=== PATIENT | male | born 1970 | race Two or more races ===

== ENCOUNTER 2017-10-12 12:25 | Inpatient (IN) | payer SELFPAY ==
[~2017-10-12] VITALS: Ht 172.7 cm; Wt 77.1 kg
[2017-10-12 14:29] LABS: HEMATOCRIT 39.1 % (42.0-52.0); HEMOGLOBIN 12.9 G/DL (14.2-18.0); MEAN CORPUSCULAR VOLUME 103 FL (80-99); PLATELET COUNT 180 K/UL (150-450); RED BLOOD COUNT 3.79 M/UL (4.70-6.10); RED CELL DISTRIBUTION WIDTH 14.2 % (11.6-14.8)
[2017-10-12 14:37] LABS: ANION GAP 11 mmol/L (5-15); BLOOD UREA NITROGEN 7 mg/dL (7-18); CALCIUM 8.1 MG/DL (8.5-10.1); CARBON DIOXIDE 27 MMOL/L (21-32); CHLORIDE 106 MMOL/L (98-107); CREATININE 0.5 MG/DL (0.55-1.30); POTASSIUM 4.2 MMOL/L (3.5-5.1); SODIUM 143 MMOL/L (136-145)
[2017-10-12 14:41] LABS: WHITE BLOOD COUNT 1.7 K/UL (4.8-10.8)
[2017-10-12 14:44] LABS: ALANINE AMINOTRANSFERASE 36 U/L (12-78); ALBUMIN 3.1 G/DL (3.4-5.0); ALBUMIN/GLOBULIN RATIO 0.7 (1.0-2.7); ALKALINE PHOSPHATASE 97 U/L (46-116); ASPARTATE AMINO TRANSFERASE 67 U/L (15-37); BILIRUBIN,TOTAL 0.1 MG/DL (0.2-1.0)
[2017-10-12 15:13] VITALS: BP 109/81
[2017-10-12 15:49] VITALS: BP 92/68
--- NOTE | 2017-10-12 16:32 | Emergency Room Report ---
History of Present Illness General Chief Complaint: Seizure Source: Patient, EMS (Matthew Del Toro) Present Illness HPI Patient's 47-year-old male who presented after having questionable altered metal status. Patient was brought in by EMS. He was noted to have recent EtOH. The patient had a questional seizure activity. It prior history of all disease. History is markedly limited by patient's mental status. (Matthew Del Toro) Allergies: Coded Allergies: UNABLE TO ASSESS (Unverified , 10/12/17) PT NOT ABLE TO STATE Patient History Reviewed Nursing Documentation: PMH: Agreed, PSxH: Agreed (Matthew Del Toro) Nursing Documentation-PMH Hx Cardiac Problems: No - ETOH ABUSE (Matthew Del Toro) Review of Systems All Other Systems: negative except mentioned in HPI (Matthew Del Toro) Physical Exam Vital Signs Date Time Temp Pulse Resp B/P (MAP) Pulse Ox O2 Delivery O2 Flow Rate FiO2 10/12/17 12:15 97.9 60 16 112/70 100 Room Air 97.9 Sp02 EP Interpretation: reviewed, normal General Appearance: normal inspection, well appearing, no apparent distress, alert, GCS 15 Head: atraumatic ENT: normal ENT inspection, hearing grossly normal, normal voice Neck: normal inspection, full range of motion, supple, no bony tend Respiratory: normal inspection, lungs clear, normal breath sounds, no respiratory distress, no retraction, no wheezing Cardiovascular #1: regular rate, rhythm, no edema Gastrointestinal: normal inspection, normal bowel sounds, non tender, soft, no guarding, no hernia Genitourinary: no CVA tenderness Musculoskeletal: normal inspection, back normal, normal range of motion Neurologic: normal inspection, alert, responsive, speech normal Psychiatric: normal inspection, judgement/insight normal, mood/affect normal Skin: normal inspection, normal color, no rash (Matthew Del Toro) Medical Decision Making Diagnostic Impression: Primary Impression: Epileptic seizure, generalized Additional Impressions: Alcohol intoxication Facial abrasion Alcohol withdrawal ER Course Patient presented for possible seizure.Differential diagnosis included but was not limited to ischemic stroke, subarachnoid hemorrhage, hypoglycemia, spinal cord injury, neurodegenerative disorder, urinary tract infection, hypoxemia. Patient was noted to have initially confused mental status. CT the head read by radiology showed no evidence of acute hemorrhage or CVA. Patient was noted to have markedly elevated blood alcohol level. Patient was endorsed to Dr. Bailey pending sobering. Labs Test 10/12/17 12:50 10/12/17 14:15 Arterial Blood pH 7.290 (7.350-7.450) Arterial Blood Partial Pressure CO2 52.5 mmHg (35.0-45.0) Arterial Blood Partial Pressure O2 99.5 mmHg (75.0-100.0) Arterial Blood HCO3 24.8 mmol/L (22.0-26.0) Arterial Blood Oxygen Saturation 95.4 % (92.0-98.0) Arterial Blood Base Excess -2.3 Ismael Test Positive White Blood Count 1.7 K/UL (4.8-10.8) Red Blood Count 3.79 M/UL (4.70-6.10) Hemoglobin 12.9 G/DL (14.2-18.0) Hematocrit 39.1 % (42.0-52.0) Mean Corpuscular Volume 103 FL (80-99) Mean Corpuscular Hemoglobin 34.0 PG (27.0-31.0) Mean Corpuscular Hemoglobin Concent 33.0 G/DL (32.0-36.0) Red Cell Distribution Width 14.2 % (11.6-14.8) Platelet Count 180 K/UL (150-450) Mean Platelet Volume 5.9 FL (6.5-10.1) Neutrophils (%) (Auto) % (45.0-75.0) Lymphocytes (%) (Auto) % (20.0-45.0) Monocytes (%) (Auto) % (1.0-10.0) Eosinophils (%) (Auto) % (0.0-3.0) Basophils (%) (Auto) % (0.0-2.0) Differential Total Cells Counted 100 Neutrophils % (Manual) 32 % (45-75) Lymphocytes % (Manual) 58 % (20-45) Monocytes % (Manual) 7 % (1-10) Eosinophils % (Manual) 3 % (0-3) Basophils % (Manual) 0 % (0-2) Band Neutrophils 0 % (0-8) Platelet Estimate Adequate Platelet Morphology Normal Anisocytosis 1+ Macrocytosis 1+ Sodium Level 143 MMOL/L (136-145) Potassium Level 4.2 MMOL/L (3.5-5.1) Chloride Level 106 MMOL/L (98-107) Carbon Dioxide Level 27 MMOL/L (21-32) Anion Gap 11 mmol/L (5-15) Blood Urea Nitrogen 7 mg/dL (7-18) Creatinine 0.5 MG/DL (0.55-1.30) Estimat Glomerular Filtration Rate > 60 mL/min (>60) Glucose Level 86 MG/DL (74-106) Calcium Level 8.1 MG/DL (8.5-10.1) Total Bilirubin 0.1 MG/DL (0.2-1.0) Aspartate Amino Transf (AST/SGOT) 67 U/L (15-37) Alanine Aminotransferase (ALT/SGPT) 36 U/L (12-78) Alkaline Phosphatase 97 U/L (46-116) Total Protein 7.4 G/DL (6.4-8.2) Albumin 3.1 G/DL (3.4-5.0) Globulin 4.3 g/dL Albumin/Globulin Ratio 0.7 (1.0-2.7) Serum Alcohol 355 mg/dL (Matthew Del Toro) ER Course received signout from Dr Cody 47 yo M with alcohol intox, now in withdrawal. had 1 mg ativan, slept throughout the night. now patient aox4, sober, but now in withdrawal, tachy at 110, +tremors librium and ativan given (RASHARD CODY M.D.) ER Course pt still withdrawing, shaky, tachycardic, additional ativan given, will admit Pt given ativan x 2, librium, still shaky and unsteady however awake/clinically sober WBC low -- ANC is 544 no fever/chills/signs of infection DW Dr Ha pt for tele bed (Ricky Owusu M.D.) Last Vital Signs Date Time Temp Pulse Resp B/P (MAP) Pulse Ox O2 Delivery O2 Flow Rate FiO2 10/12/17 15:49 97.9 65 17 92/68 100 Room Air 97.9 Status: unchanged (Matthew Del Toro) Disposition: ADMITTED INPATIENT Condition: Serious Scripts Unable to Obtain Active Prescriptions or Reported Meds Patient Instructions: Seizure, Adult Matthew Del Toro Oct 12, 2017 16:32 RASHARD CODY M.D. Oct 13, 2017 07:05 Ricky Owusu M.D. Oct 13, 2017 08:36
--- NOTE | 2017-10-12 17:06 | Diagnostic Imaging Report ---
Indications: Altered mental status Technique: Spiral acquisitions obtained through the brain. Angled axial and coronal 5 x 5 mm slices were reconstructed. Total dose length product 1376.09 mGycm. CTDI vol(s) 70.38 mGy. Dose reduction achieved using automated exposure control Comparison: There is marked enlargement of the ventricles and extra axial CSF spaces. Normal estes-white differentiation. No acute intracranial hemorrhage or edema. No mass effect nor midline shift. There is bilateral maxillary sinus mucosal disease and left greater than right periosteal thickening. Visualized orbits are unremarkable. The mastoids are clear. The calvarium is intact. Findings: Marked cerebral volume loss, out of proportion to patient's age. Correlate with clinical history No acute intracranial bleed or mass effect Sinus disease Impression: The CT scanner at [facility] is accredited by the [employer] and the scans are performed using protocols designed to limit radiation exposure to as low as reasonably achievable to attain images of sufficient resolution adequate for diagnostic evaluation.
[2017-10-12 20:47] VITALS: BP 132/87
[2017-10-13] VITALS (9 sets, daily range): BP systolic 106–142; BP diastolic 60–95
[2017-10-13] MEDS ORDERED: LORazepam Inj 2mg/ml 1ml ONE (04:15)
[2017-10-13] MEDS ORDERED: LORazepam Inj 2mg/ml 1ml IM ONE ×2 (04:15→07:00)
[2017-10-13] MEDS ORDERED: chlordiazePOXIDE 25mg Cap ORAL ONE (07:00)
[2017-10-13] MEDS ORDERED: LORazepam Inj 2mg/ml 1ml IV ONE (08:45)
[2017-10-13] MEDS ORDERED: Thiamine HCl 100 MG in D5W 55 ML IVPB ONE (08:45)
[2017-10-13] MEDS ORDERED: Thiamine HCl 100mg/ml 2 ml Inj ONE (09:02)
[2017-10-13 13:29] LABS: APPEARANCE,URINE CLEAR; BILIRUBIN, URINE NEGATIVE (NEGATIVE); COLOR,URINE PALE YELLOW; GLUCOSE, URINE (UA) NEGATIVE (NEGATIVE); KETONES,URINE 2+ (NEGATIVE); LEUKOCYTE ESTERASE ,URINE NEGATIVE (NEGATIVE); NITRITE,URINE NEGATIVE (NEGATIVE); PH,URINE 6 (4.5-8.0); PROTEIN,URINE NEGATIVE (NEGATIVE); UROBILINOGEN,URINE NORMAL MG/DL (0.0-1.0)
--- NOTE | 2017-10-13 13:51 | Diagnostic Imaging Report ---
Indication: Shortness of breath Technique: One view of the chest Comparison: None Findings: Lungs and pleural spaces are clear. The heart size is upper limits of normal. The aorta is tortuous. There are healed left rib fracture deformities Impression: No acute process
--- NOTE | 2017-10-13 15:10 | Neurology Progress Note ---
Objective Physical Exam Last Vital Signs Date Time Temp Pulse Resp B/P (MAP) Pulse Ox O2 Delivery O2 Flow Rate FiO2 10/13/17 13:30 98.3 80 18 112/89 100 Room Air 98.3 Laboratory Tests Test 10/13/17 13:10 Urine Color Pale yellow Urine Appearance Clear Urine pH 6 (4.5-8.0) Urine Specific [place] 1.020 (1.005-1.035) Urine Protein Negative (NEGATIVE) Urine Glucose (UA) Negative (NEGATIVE) Urine Ketones 2+ (NEGATIVE) H Urine Occult Blood 1+ (NEGATIVE) H Urine Nitrite Negative (NEGATIVE) Urine Bilirubin Negative (NEGATIVE) Urine Urobilinogen Normal MG/DL (0.0-1.0) Urine Leukocyte Esterase Negative (NEGATIVE) Urine RBC 0-2 /HPF (0 - 0) H Urine WBC 0-2 /HPF (0 - 0) Urine Squamous Epithelial Cells Few /LPF (NONE/OCC) Urine Bacteria Occasional /HPF (NONE) Urine Mucus Few /LPF (NONE/OCC) H Urine Opiates Screen Negative (NEGATIVE) Urine Barbiturates Screen Negative (NEGATIVE) Phencyclidine (PCP) Screen Negative (NEGATIVE) Urine Amphetamines Screen Negative (NEGATIVE) Urine Benzodiazepines Screen Positive (NEGATIVE) H Urine Cocaine Screen Negative (NEGATIVE) Urine Marijuana (THC) Screen Negative (NEGATIVE) Impression/Recommendations Recommendations #[id number] RADHA SALTER Oct 13, 2017 15:10
[2017-10-13] MEDS ORDERED: LORazepam Inj 2mg/ml 1ml IV PRN (15:45)
[2017-10-13] MEDS ORDERED: Vitamin B12 1000mcg/ml Inj IM ONE (16:00)
--- NOTE | 2017-10-13 16:02 | Consultation ---
Consult Note Consult Note Patient's 47-year-old male who presented after having questionable altered metal status. Patient was brought in by EMS. He was noted to have recent EtOH. The patient had a questional seizure activity. It prior history of all disease. History is markedly limited by patient's mental status. Assessment/Plan Epileptic seizure, generalized Alcohol intoxication Facial abrasion Alcohol withdrawal hydrate mag Thiamin LibrRASHAWN Monteiro Oct 13, 2017 16:01
[2017-10-13 16:39] LABS: HEMOGLOBIN 11.2 G/DL (14.2-18.0); MEAN CORPUSCULAR VOLUME 103 FL (80-99); PLATELET COUNT 178 K/UL (150-450); RED BLOOD COUNT 3.22 M/UL (4.70-6.10); RED CELL DISTRIBUTION WIDTH 13.9 % (11.6-14.8); WHITE BLOOD COUNT 3.1 K/UL (4.8-10.8)
--- NOTE | 2017-10-13 16:47 | General Progress Note ---
Assessment/Plan Assessment/Plan GI CONSULT Assessment - ETOH abuse - marrow suppression - Etoh Hepatitis Recommendations - IVF - Folate - BDZ - po as tolerated - d/c EtOH Thank you P Anupama Subjective Allergies: Coded Allergies: UNABLE TO ASSESS (Unverified , 10/12/17) PT NOT ABLE TO STATE Objective Last 24 Hour Vital Signs Date Time Temp Pulse Resp B/P (MAP) Pulse Ox O2 Delivery O2 Flow Rate FiO2 10/13/17 15:25 97.8 73 14 124/83 99 Room Air 10/13/17 13:30 98.3 80 18 112/89 100 Room Air 98.3 10/13/17 11:30 75 14 120/74 99 Room Air 10/13/17 10:30 85 15 113/67 100 Room Air 10/13/17 09:30 98.0 94 13 122/89 100 Room Air 98.0 10/13/17 08:30 86 15 117/83 99 Room Air 10/13/17 07:30 87 12 Room Air 10/13/17 07:30 98.1 87 12 127/81 100 Room Air 98.1 10/13/17 05:41 97.5 10/13/17 05:36 97.5 90 16 106/60 97 Room Air 97.5 10/13/17 04:42 97.7 10/12/17 20:47 97.7 63 18 132/87 100 Room Air 97.7 Intake and Output 10/12/17 10/13/17 19:00 07:00 # Voids 1 Laboratory Tests 10/13/17 13:10: Urine Color Pale yellow, Urine Appearance Clear, Urine pH 6, Urine Specific [place] 1.020, Urine Protein Negative, Urine Glucose (UA) Negative, Urine Ketones 2+H, Urine Occult Blood 1+H, Urine Nitrite Negative, Urine Bilirubin Negative, Urine Urobilinogen Normal, Urine Leukocyte Esterase Negative, Urine RBC 0-2H, Urine WBC 0-2, Urine Squamous Epithelial Cells Few, Urine Bacteria Occasional, Urine Mucus FewH, Urine Opiates Screen Negative, Urine Barbiturates Screen Negative, Phencyclidine (PCP) Screen Negative, Urine Amphetamines Screen Negative, Urine Benzodiazepines Screen PositiveH, Urine Cocaine Screen Negative , Urine Marijuana (THC) Screen Negative 10/13/17 16:15: White Blood Count 3.1#L, Red Blood Count 3.22L, Hemoglobin 11.2L, Hematocrit 33.0L, Mean Corpuscular Volume 103H, Mean Corpuscular Hemoglobin 34.8H, Mean Corpuscular Hemoglobin Concent 33.9, Red Cell Distribution Width 13.9, Platelet Count 178, Mean Platelet Volume 6.8, Neutrophils (%) (Auto) , Lymphocytes (%) ( Auto) , Monocytes (%) (Auto) , Eosinophils (%) (Auto) , Basophils (%) (Auto) , Sodium Level [Pending], Potassium Level [Pending], Chloride Level [Pending], Carbon Dioxide Level [Pending], Blood Urea Nitrogen [Pending], Creatinine [ Pending], Estimat Glomerular Filtration Rate [Pending], Glucose Level [Pending] , Calcium Level [Pending], Total Bilirubin [Pending], Aspartate Amino Transf ( AST/SGOT) [Pending], Alanine Aminotransferase (ALT/SGPT) [Pending], Alkaline Phosphatase [Pending], C-Reactive Protein, Quantitative [Pending], Total Protein [Pending], Albumin [Pending], Globulin [Pending], Vitamin B12 Level [ Pending], Vitamin D 25-Hydroxy [Pending], 25-Hydroxy Vitamin D2 [Pending], 25- Hydroxy Vitamin D3 [Pending], Thyroid Stimulating Hormone (TSH) [Pending] Height (Feet): 5 Height (Inches): 7.00 Weight (Pounds): 150 PHILLMAGED VELAZQUEZ Oct 13, 2017 16:47
[2017-10-13] MEDS ORDERED: Thiamine 100mg in D5W 55ml IVPB ONE (17:00)
[2017-10-13] MEDS ORDERED: Folic Acid 1 MG, Magnesium Sulfate 2,000 MG, Multivitamin - 12 Injection 10 ML in NS w/... IV ONE (17:00)
[2017-10-13 17:06] LABS: ALANINE AMINOTRANSFERASE 34 U/L (12-78); ALBUMIN 2.9 G/DL (3.4-5.0); ALBUMIN/GLOBULIN RATIO 0.8 (1.0-2.7); ALKALINE PHOSPHATASE 87 U/L (46-116); ANION GAP 13 mmol/L (5-15); ASPARTATE AMINO TRANSFERASE 60 U/L (15-37); BILIRUBIN,TOTAL 0.6 MG/DL (0.2-1.0); BLOOD UREA NITROGEN 4 mg/dL (7-18); CALCIUM 8.3 MG/DL (8.5-10.1); CARBON DIOXIDE 24 MMOL/L (21-32); CHLORIDE 102 MMOL/L (98-107); CREATININE 0.6 MG/DL (0.55-1.30); SODIUM 139 MMOL/L (136-145)
--- NOTE | 2017-10-13 18:08 | Consultation ---
History of Present Illness General Date patient seen: Oct 13, 2017 Chief Complaint: Seizure Present Illness HPI 47-year-old male who bib EMS after having questionable altered metal status. He was noted to have recent EtOH. The patient had a questionable seizure activity in er, the pt was given benzos. the pt calmer now Allergies: Coded Allergies: UNABLE TO ASSESS (Unverified , 10/12/17) PT NOT ABLE TO STATE Medication History Unable to Obtain Active Prescriptions or Reported Meds Patient History Healthcare decision maker Resuscitation status Advanced Directive on File Physical Exam Last 24 Hour Vital Signs Date Time Temp Pulse Resp B/P (MAP) Pulse Ox O2 Delivery O2 Flow Rate FiO2 10/13/17 16:00 98.2 86 20 142/95 98 Room Air 98.2 10/13/17 15:25 97.8 73 14 124/83 99 Room Air 10/13/17 13:30 98.3 80 18 112/89 100 Room Air 98.3 10/13/17 11:30 75 14 120/74 99 Room Air 10/13/17 10:30 85 15 113/67 100 Room Air 10/13/17 09:30 98.0 94 13 122/89 100 Room Air 98.0 10/13/17 08:30 86 15 117/83 99 Room Air 10/13/17 07:30 87 12 Room Air 10/13/17 07:30 98.1 87 12 127/81 100 Room Air 98.1 10/13/17 05:41 97.5 10/13/17 05:36 97.5 90 16 106/60 97 Room Air 97.5 10/13/17 04:42 97.7 10/12/17 20:47 97.7 63 18 132/87 100 Room Air 97.7 Intake and Output 10/12/17 10/13/17 19:00 07:00 # Voids 1 Laboratory Tests Test 10/13/17 13:10 10/13/17 16:15 Urine Color Pale yellow Urine Appearance Clear Urine pH 6 (4.5-8.0) Urine Specific [place] 1.020 (1.005-1.035) Urine Protein Negative (NEGATIVE) Urine Glucose (UA) Negative (NEGATIVE) Urine Ketones 2+ (NEGATIVE) H Urine Occult Blood 1+ (NEGATIVE) H Urine Nitrite Negative (NEGATIVE) Urine Bilirubin Negative (NEGATIVE) Urine Urobilinogen Normal MG/DL (0.0-1.0) Urine Leukocyte Esterase Negative (NEGATIVE) Urine RBC 0-2 /HPF (0 - 0) H Urine WBC 0-2 /HPF (0 - 0) Urine Squamous Epithelial Cells Few /LPF (NONE/OCC) Urine Bacteria Occasional /HPF (NONE) Urine Mucus Few /LPF (NONE/OCC) H Urine Opiates Screen Negative (NEGATIVE) Urine Barbiturates Screen Negative (NEGATIVE) Phencyclidine (PCP) Screen Negative (NEGATIVE) Urine Amphetamines Screen Negative (NEGATIVE) Urine Benzodiazepines Screen Positive (NEGATIVE) H Urine Cocaine Screen Negative (NEGATIVE) Urine Marijuana (THC) Screen Negative (NEGATIVE) White Blood Count 3.1 K/UL (4.8-10.8) #L Red Blood Count 3.22 M/UL (4.70-6.10) L Hemoglobin 11.2 G/DL (14.2-18.0) L Hematocrit 33.0 % (42.0-52.0) L Mean Corpuscular Volume 103 FL (80-99) H Mean Corpuscular Hemoglobin 34.8 PG (27.0-31.0) H Mean Corpuscular Hemoglobin Concent 33.9 G/DL (32.0-36.0) Red Cell Distribution Width 13.9 % (11.6-14.8) Platelet Count 178 K/UL (150-450) Mean Platelet Volume 6.8 FL (6.5-10.1) Neutrophils (%) (Auto) % (45.0-75.0) Lymphocytes (%) (Auto) % (20.0-45.0) Monocytes (%) (Auto) % (1.0-10.0) Eosinophils (%) (Auto) % (0.0-3.0) Basophils (%) (Auto) % (0.0-2.0) Sodium Level 139 MMOL/L (136-145) Potassium Level 4.0 MMOL/L (3.5-5.1) Chloride Level 102 MMOL/L (98-107) Carbon Dioxide Level 24 MMOL/L (21-32) Anion Gap 13 mmol/L (5-15) Blood Urea Nitrogen 4 mg/dL (7-18) L Creatinine 0.6 MG/DL (0.55-1.30) Estimat Glomerular Filtration Rate > 60 mL/min (>60) Glucose Level 74 MG/DL (74-106) Calcium Level 8.3 MG/DL (8.5-10.1) L Total Bilirubin 0.6 MG/DL (0.2-1.0) Aspartate Amino Transf (AST/SGOT) 60 U/L (15-37) H Alanine Aminotransferase (ALT/SGPT) 34 U/L (12-78) Alkaline Phosphatase 87 U/L (46-116) C-Reactive Protein, Quantitative > 70.0 mg/dL (0.00-0.90) H Total Protein 6.7 G/DL (6.4-8.2) Albumin 2.9 G/DL (3.4-5.0) L Globulin 3.8 g/dL Albumin/Globulin Ratio 0.8 (1.0-2.7) L Vitamin B12 Level 540 PG/ML (193-986) Vitamin D 25-Hydroxy Pending 25-Hydroxy Vitamin D2 Pending 25-Hydroxy Vitamin D3 Pending Thyroid Stimulating Hormone (TSH) 4.050 uiU/mL (0.358-3.740) Height (Feet): 5 Height (Inches): 7.00 Weight (Pounds): 150 Medications Current Medications Medications (Trade) Dose Ordered Sig/Janneth Route PRN Reason Start Time Stop Time Status Last Admin Dose Admin Acetaminophen (Tylenol) 325 mg Q4H PRN ORAL Mild Pain/Temp > 100.5 10/13/17 15:45 11/12/17 15:44 Dextrose (Dextrose 50%) STAT PRN IV Hypoglycemia 10/13/17 15:45 11/12/17 15:44 Dextrose/ Electrolytes 1,000 ml @ 100 mls/hr Q10H IV 10/13/17 23:00 11/12/17 22:59 Diazepam (Valium) 5 mg Q8HR ORAL 10/13/17 15:30 10/20/17 15:29 Folic Acid 1 mg/ Magnesium Sulfate 2000 mg/ Multivitamins 10 ml/Sodium Chloride 1,014.2 ml @ 200 mls/ hr Q5H5M ONCE IV 10/13/17 17:00 10/13/17 22:04 10/13/17 17:36 Lorazepam (Ativan 2mg/ml 1ml) 2 mg Q2HR PRN IV For Seizures 10/13/17 15:45 10/20/17 15:44 Magnesium Oxide (Mag-Ox 400mg) 400 mg THREE TIMES A DAY ORAL 10/13/17 15:30 11/12/17 15:29 Thiamine HCl (Vitamin B1) 100 mg DAILY IM 10/14/17 09:00 11/13/17 08:59 Assessment/Plan Status: stable Assessment/Plan alcohol wd agitation start valium 10mg q4hr prn depakote 500mg qhs Dwain Wren M.D. Oct 13, 2017 18:08
[2017-10-13] MEDS: Magnesium Oxide 400mg tab ORAL SCH ×2 (18:36→20:41)
--- NOTE | 2017-10-13 20:31 | Consultation ---
DATE OF CONSULTATION: 10/13/2017 NEUROLOGICAL CONSULTATION CONSULTING PHYSICIAN: Wei Nieves M.D. REQUESTING PHYSICIAN: Britney Matos M.D. HISTORY OF PRESENT ILLNESS: This is a 47-year-old transient man brought to this hospital by paramedics as he was found to be having what seems seizure activity. On arrival, the patient was afebrile with blood pressure 112/70 and heart rate of 100. Initially, not in any distress and Trupti coma scale was 15. There was mild facial abrasions. The stat CT of the brain was obtained revealing a marked cerebral volume loss out of proportion to the patient's age, sinus disease, and no acute intracranial abnormalities. Chest x-ray, no acute process. Laboratory work was obtained revealing urinalysis 2+ ketones. Chemistry panel with calcium 8.1, AST 67, and albumin 3.1. Toxicology panel positive for benzodiazepine and serum alcohol initial was 355. CBC study with WBC 1.7, hematocrit 39.1, and elevated MCV and MCH. Blood gases with pH 7.290 and pCO2 52.5. The patient was displaying signs of withdrawal with tremors. He received Ativan. He is about developing a tachycardia 110 and generalized tremors. He also received Librium and additional doses of Ativan. He was described as being shaky and unsteady. Continued to display signs of withdrawal. Since admission till present, there was no further paroxysmal event. PAST MEDICAL HISTORY: Incomplete. The patient speaks Arabic only and was able to explain that he has some drinking, but he is unaware of medical problems. MEDICATIONS: He is not taking any medications. FAMILY HISTORY: Unavailable. REVIEW OF SYSTEMS: Mild headache. Slight dizziness. Blurry vision. "Feeling like freezing," but no chest pain, no palpitations, and no respiratory problems. No abdominal pain or discomfort, but has generalized aches and pains. PHYSICAL EXAMINATION: GENERAL: A well-developed, disheveled man, found to be lying in bed, sleeping in a position. VITAL SIGNS: Now are stable. Blood pressure 112/99, pulse oximetry 100%, and temperature 98.3. HEENT: Head, normocephalic. There is slight abrasions noted. No otorrhea. No rhinorrhea. NECK: Rigid in all directions. MUSCULOSKELETAL: There is no deformities noted except puffiness in both ankles. MENTAL STATUS: Initially asleep, but arousable. Responding briefly in small sentences. Able to follow simple commands. Provide with limited information. CRANIAL NERVE II: Pupils both responding to light and accommodation. Extraocular movement full range. Fundi poorly visualized. CRANIAL NERVE V: Normal corneal responses. CRANIAL NERVE VII: No facial asymmetry. CRANIAL NERVE VIII: Normal hearing. CRANIAL NERVE IX THROUGH XII: Tongue is in midline. Positive gag response. MOTOR EXAMINATION: Diffuse rigidity with a tendency to keep arms and legs flexed. Able to lift both arms and both legs. There is a resting tremor of both hands. Deep tendon reflexes 1+ bilaterally. Plantar response is mute. No pathological responses. SENSORY EXAMINATION: Withdrawing to pin stimulation. Gait not tested. IMPRESSION: 1. Acute severe alcohol intoxication. 2. Alcohol withdrawal syndrome. 3. Probably chronic alcohol abuse based on CT scan findings. 4. Leukopenia probably due to acute alcohol intoxication. 5. Anemia, rule out B12 deficiency. RECOMMENDATIONS: The patient to be placed on CIWA protocol. Continue with a banana bag, which included normal saline, thiamine, folate, and magnesium supplements. Continue with Librium 50 mg q.4. Monitor CBC and electrolyte panel. Have cardiac monitoring. Have Psychiatry assessment. Use Ativan 2 mg IV q.2 hours p.r.n. for recurrent seizures. If necessary, we will add anticonvulsants. Thank you for allowing me to see this interesting patient in neurological consultation. Wei Nieves M.D. DR: ALFREDO JOB#: [id number] CC:
[2017-10-13] MEDS: Depakote 500mg tab ORAL SCH (20:41)
[2017-10-14] VITALS: BP 110/68
--- NOTE | 2017-10-14 02:31 | Consultation ---
DATE OF CONSULTATION: 10/13/2017 GASTROENTEROLOGY CONSULTATION CONSULTING PHYSICIAN: Nate Altman M.D. CHIEF COMPLAINT: I was asked to see this patient by Dr. Matos for evaluation of alcoholic hepatitis. HISTORY OF PRESENT ILLNESS: The patient is a 47-year-old man with a longstanding history of alcohol use, who comes into the hospital due to alcohol intoxication and withdrawal. The patient is somewhat confused, but awake and calm. He states he drinks Tequila every day. His labs on admission show some degree of abnormal liver tests and white count, which are improving. He has not had any nausea or vomiting. PAST MEDICAL HISTORY: Remarkable for history of alcohol abuse. SOCIAL HISTORY: The patient is and non-Korean speaking. FAMILY HISTORY: Noncontributory. REVIEW OF SYSTEMS: Otherwise negative. PHYSICAL EXAMINATION: GENERAL: This is a pleasant man, seen in the room. HEENT: Normocephalic and atraumatic. Sclerae anicteric. Oropharynx clear. NECK: Supple. CHEST: Clear to auscultation. CARDIOVASCULAR: Regular rate. ABDOMEN: Soft and mildly tender, but without guarding or rebound. EXTREMITIES: Revealed no edema. NEUROLOGY: Grossly nonfocal. However, the patient does appear to be somewhat slow in speech. LABORATORY DATA: Noted. ASSESSMENT: This patient presents with long-term alcohol abuse. The patient will be treated with benzodiazepines. The patient will also receive multivitamins and thiamine and folate. I will check lipase level to rule out alcoholic pancreatitis. At this time, he can be given a diet and advance as tolerated. He should be advised strongly to avoid alcohol. The abnormalities seen in the liver tests and white count are all consistent with severe alcoholic effect. RECOMMENDATIONS: Per above discussion and per orders written in the chart. Thank you for asking me to participate in the care of this patient. Nate Altman M.D. DR: Leonardo JOB#: [id number] CC: TREVA
[2017-10-14 04:00] VITALS: BP 115/74
[2017-10-14 08:00] VITALS: BP 128/73
[2017-10-14 08:41] LABS: HEMATOCRIT 33.7 % (42.0-52.0); HEMOGLOBIN 11.5 G/DL (14.2-18.0); MEAN CORPUSCULAR VOLUME 104 FL (80-99); PLATELET COUNT 170 K/UL (150-450); RED BLOOD COUNT 3.24 M/UL (4.70-6.10); RED CELL DISTRIBUTION WIDTH 14.3 % (11.6-14.8); WHITE BLOOD COUNT 3.4 K/UL (4.8-10.8)
--- NOTE | 2017-10-14 08:43 | Consultation ---
History of Present Illness General Date patient seen: Oct 14, 2017 Time patient seen: 07:15 - am Chief Complaint: Seizure Referring physician: devante Present Illness HPI Patient admitted under the care of Dr. Matos with Alcohol withdrawal. C/o generalized body pain. We were consulted to help patient tolerate his pain while here in the hospital Allergies: Coded Allergies: UNABLE TO ASSESS (Unverified , 10/12/17) PT NOT ABLE TO STATE Medication History Unable to Obtain Active Prescriptions or Reported Meds Patient History Limited by: language barrier History Provided By: Patient Healthcare decision maker Resuscitation status Full Code Advanced Directive on File No Past Medical/Surgical History Past Medical/Surgical History: (1) Alcohol withdrawal (2) Alcohol intoxication Social History Social History: (1) Alcohol intoxication Review of Systems Constitutional: Reports: weakness Eye: Reports: no symptoms ENT: Reports: no symptoms Respiratory: Reports: no symptoms Cardiovascular: Reports: no symptoms Gastrointestinal: Reports: no symptoms Genitourinary: Reports: no symptoms Skin: Reports: no symptoms Psychiatric: Reports: no symptoms Neurological: Reports: seizure Endocrine: Reports: no symptoms Hematologic/Lymphatic: Reports: no symptoms Physical Exam General Appearance: no apparent distress, alert HEENT: PERRL Neck: non-tender, supple Respiratory/Chest: lungs clear, normal breath sounds Abdomen: distended Extremities: non-tender, normal inspection Neurologic: alert, oriented x 3, responsive Last 24 Hour Vital Signs Date Time Temp Pulse Resp B/P (MAP) Pulse Ox O2 Delivery O2 Flow Rate FiO2 10/14/17 04:00 97.6 74 18 115/74 96 97.6 10/14/17 00:00 97.7 87 18 110/68 97 97.7 10/13/17 20:00 98.8 110 20 121/81 97 98.8 10/13/17 16:00 98.2 86 20 142/95 98 Room Air 98.2 10/13/17 15:25 97.8 73 14 124/83 99 Room Air 10/13/17 13:30 98.3 80 18 112/89 100 Room Air 98.3 10/13/17 11:30 75 14 120/74 99 Room Air 10/13/17 10:30 85 15 113/67 100 Room Air 10/13/17 09:30 98.0 94 13 122/89 100 Room Air 98.0 Intake and Output 10/13/17 10/14/17 18:59 06:59 Intake Total 1256 ml 1800 ml Output Total 300 ml 1500 ml Balance 956 ml 300 ml Intake Oral 200 ml 800 ml IV Total 1056 ml 1000 ml Output Urine Total 300 ml 1500 ml # Voids 2 Laboratory Tests Test 10/13/17 13:10 10/13/17 16:15 10/14/17 07:50 Urine Color Pale yellow Urine Appearance Clear Urine pH 6 (4.5-8.0) Urine Specific [place] 1.020 (1.005-1.035) Urine Protein Negative (NEGATIVE) Urine Glucose (UA) Negative (NEGATIVE) Urine Ketones 2+ (NEGATIVE) H Urine Occult Blood 1+ (NEGATIVE) H Urine Nitrite Negative (NEGATIVE) Urine Bilirubin Negative (NEGATIVE) Urine Urobilinogen Normal MG/DL (0.0-1.0) Urine Leukocyte Esterase Negative (NEGATIVE) Urine RBC 0-2 /HPF (0 - 0) H Urine WBC 0-2 /HPF (0 - 0) Urine Squamous Epithelial Cells Few /LPF (NONE/OCC) Urine Bacteria Occasional /HPF (NONE) Urine Mucus Few /LPF (NONE/OCC) H Urine Opiates Screen Negative (NEGATIVE) Urine Barbiturates Screen Negative (NEGATIVE) Phencyclidine (PCP) Screen Negative (NEGATIVE) Urine Amphetamines Screen Negative (NEGATIVE) Urine Benzodiazepines Screen Positive (NEGATIVE) H Urine Cocaine Screen Negative (NEGATIVE) Urine Marijuana (THC) Screen Negative (NEGATIVE) White Blood Count 3.1 K/UL (4.8-10.8) #L Pending Red Blood Count 3.22 M/UL (4.70-6.10) L Pending Hemoglobin 11.2 G/DL (14.2-18.0) L Pending Hematocrit 33.0 % (42.0-52.0) L Pending Mean Corpuscular Volume 103 FL (80-99) H Pending Mean Corpuscular Hemoglobin 34.8 PG (27.0-31.0) H Pending Mean Corpuscular Hemoglobin Concent 33.9 G/DL (32.0-36.0) Pending Red Cell Distribution Width 13.9 % (11.6-14.8) Pending Platelet Count 178 K/UL (150-450) Pending Mean Platelet Volume 6.8 FL (6.5-10.1) Pending Neutrophils (%) (Auto) % (45.0-75.0) Pending Lymphocytes (%) (Auto) % (20.0-45.0) Pending Monocytes (%) (Auto) % (1.0-10.0) Pending Eosinophils (%) (Auto) % (0.0-3.0) Pending Basophils (%) (Auto) % (0.0-2.0) Pending Sodium Level 139 MMOL/L (136-145) Pending Potassium Level 4.0 MMOL/L (3.5-5.1) Pending Chloride Level 102 MMOL/L (98-107) Pending Carbon Dioxide Level 24 MMOL/L (21-32) Pending Anion Gap 13 mmol/L (5-15) Blood Urea Nitrogen 4 mg/dL (7-18) L Pending Creatinine 0.6 MG/DL (0.55-1.30) Pending Estimat Glomerular Filtration Rate > 60 mL/min (>60) Pending Glucose Level 74 MG/DL (74-106) Pending Calcium Level 8.3 MG/DL (8.5-10.1) L Pending Total Bilirubin 0.6 MG/DL (0.2-1.0) Pending Aspartate Amino Transf (AST/SGOT) 60 U/L (15-37) H Pending Alanine Aminotransferase (ALT/SGPT) 34 U/L (12-78) Pending Alkaline Phosphatase 87 U/L (46-116) Pending C-Reactive Protein, Quantitative > 70.0 mg/dL (0.00-0.90) H Total Protein 6.7 G/DL (6.4-8.2) Pending Albumin 2.9 G/DL (3.4-5.0) L Pending Globulin 3.8 g/dL Pending Albumin/Globulin Ratio 0.8 (1.0-2.7) L Vitamin B12 Level 540 PG/ML (193-986) Vitamin D 25-Hydroxy Pending 25-Hydroxy Vitamin D2 Pending 25-Hydroxy Vitamin D3 Pending Thyroid Stimulating Hormone (TSH) 4.050 uiU/mL (0.358-3.740) Hemoglobin A1c Pending Uric Acid Pending Phosphorus Level Pending Magnesium Level Pending Gamma Glutamyl Transpeptidase Pending Total Creatine Kinase Pending Pro-B-Type Natriuretic Peptide Pending Triglycerides Level Pending Cholesterol Level Pending LDL Cholesterol Pending HDL Cholesterol Pending Cholesterol/HDL Ratio Pending Lipase Pending Folate Pending Height (Feet): 5 Height (Inches): 8.00 Weight (Pounds): 170 Medications Current Medications Medications (Trade) Dose Ordered Sig/Janneth Route PRN Reason Start Time Stop Time Status Last Admin Dose Admin Acetaminophen (Tylenol) 325 mg Q4H PRN ORAL Mild Pain/Temp > 100.5 10/13/17 15:45 11/12/17 15:44 Dextrose (Dextrose 50%) STAT PRN IV Hypoglycemia 10/13/17 15:45 11/12/17 15:44 Dextrose/ Electrolytes 1,000 ml @ 100 mls/hr Q10H IV 10/13/17 23:00 11/12/17 22:59 10/13/17 20:43 Diazepam (Valium) 10 mg Q4H PRN ORAL alcohol withdrawal 10/13/17 21:00 10/20/17 20:59 Divalproex Sodium (Depakote) 500 mg BEDTIME ORAL 10/13/17 21:00 11/12/17 20:59 10/13/17 20:41 Magnesium Oxide (Mag-Ox 400mg) 400 mg THREE TIMES A DAY ORAL 10/13/17 15:30 11/12/17 15:29 10/13/17 20:41 Thiamine HCl (Vitamin B1) 100 mg DAILY IM 10/14/17 09:00 11/13/17 08:59 Assessment/Plan Problem List: (1) Alcohol intoxication ICD Codes: F10.929 - Alcohol use, unspecified with intoxication, unspecified SNOMED: 83125715 (2) Epileptic seizure, generalized ICD Codes: G40.309 - Generalized idiopathic epilepsy and epileptic syndromes, not intractable, without status epilepticus SNOMED: 71330043 (3) Facial abrasion ICD Codes: S00.81XA - Abrasion of other part of head, initial encounter SNOMED: 252690696 (4) Alcohol withdrawal ICD Codes: F10.239 - Alcohol dependence with withdrawal, unspecified SNOMED: 866451682 Assessment/Plan We will start patient on Neurontin 300mg PO TID, Flexeril and Tylenol continued Ativan. Pt was d/w Dr. Parker and he concurred. Thank you for the courtesy of this consult. MERCEDES CARMONA. Oct 14, 2017 08:43
--- NOTE | 2017-10-14 08:46 | History and Physical Report ---
DATE OF ADMISSION: 10/13/2017 HISTORY OF PRESENT ILLNESS: The patient basically comes in and admitted for alcohol withdrawal and also for neutropenia. The patient is also here for possible alcohol withdrawal. The patient has a very high alcohol level, had tremors, tachycardia, and WBC of 1.7. The patient also complains of vomiting and abdominal pain as well as denies hematemesis. Denies rectal bleeding. Denies any other pain. He does have history of seizures in the past. Denies headache. Denies diplopia. Denies weakness. Denies dizziness or vertigo. PAST MEDICAL HISTORY: male with history of alcohol abuse and history of seizures. PAST SURGICAL HISTORY: None. MEDICATIONS: None. SOCIAL HISTORY: The patient smokes, has history of alcohol abuse. unable to obtain the patient at this point. I am unable to verify . We will have a drug abuse social worker consult. FAMILY HISTORY: Noncontributory. REVIEW OF SYSTEMS: As mentioned is only significant for vomiting and abdominal pain. No hematemesis. PHYSICAL EXAMINATION: VITAL SIGNS: Temperature 98 degrees, pulse is 94, and blood pressure 122/89. HEENT: PERRLA. NECK: Supple. No lymphadenopathy. CHEST: Clear to auscultation. ABDOMEN: Otherwise soft. Positive bowel sounds. No organomegaly. EXTREMITIES: A 1+ edema. NEUROLOGIC: Oriented to name only. Reflexes in both sides. LABORATORY DATA: WBC of 1.7, hemoglobin 12.9, and platelets of 180. Sodium 143, potassium 4.2, BUN of 7, creatinine of 0.5, and glucose of 86. AST of 67 and ALT of 36. ASSESSMENT AND PLAN: 1. Rule out alcohol withdrawal syndrome. 2. Tachycardia. I have asked Dr. Vignesh Dr. , , 02:42, and Dr. Altman to see the patient to rule out pancreatitis and for the treatment of the above-mentioned diagnoses and symptoms. Britney Matos M.D. DR: MEETA JOB#: [id number] CC:
[2017-10-14] MEDS ORDERED: Cyclobenzaprine 10mg Tab ORAL PRN (09:00)
[2017-10-14 09:19] LABS: ALANINE AMINOTRANSFERASE 31 U/L (12-78); ALBUMIN 2.7 G/DL (3.4-5.0); ALBUMIN/GLOBULIN RATIO 0.7 (1.0-2.7); ALKALINE PHOSPHATASE 82 U/L (46-116); ANION GAP 10 mmol/L (5-15); ASPARTATE AMINO TRANSFERASE 41 U/L (15-37); BILIRUBIN,TOTAL 0.9 MG/DL (0.2-1.0); BLOOD UREA NITROGEN 5 mg/dL (7-18); CALCIUM 8.3 MG/DL (8.5-10.1); CARBON DIOXIDE 25 MMOL/L (21-32); CHLORIDE 102 MMOL/L (98-107); CHOLESTEROL 157 MG/DL (< 200); CREATININE 0.7 MG/DL (0.55-1.30); HDL CHOLESTEROL 69 MG/DL (40-60); POTASSIUM 3.6 MMOL/L (3.5-5.1); SODIUM 136 MMOL/L (136-145); TRIGLYCERIDES 52 MG/DL (30-150)
[2017-10-14] MEDS: Magnesium Oxide 400mg tab ORAL SCH ×3 (09:50→17:45)
[2017-10-14] MEDS: Thiamine HCl 100mg/ml 2 ml Inj IM SCH (09:50)
[2017-10-14 10:23] LABS: CREATINE KINASE 182 U/L (26-308); GAMMA GLUTAMYL TRANSPEPTIDASE 46 U/L (5-85); PHOSPHORUS 3.5 MG/DL (2.5-4.9)
--- NOTE | 2017-10-14 11:20 | General Progress Note ---
Subjective Date patient seen: Oct 14, 2017 Neurologic/Psychiatric: Reports: anxiety, depressed, emotional problems Allergies: Coded Allergies: UNABLE TO ASSESS (Unverified , 10/12/17) PT NOT ABLE TO STATE Subjective the pt is vietnamese speaking. the pt is Objective Last 24 Hour Vital Signs Date Time Temp Pulse Resp B/P (MAP) Pulse Ox O2 Delivery O2 Flow Rate FiO2 10/14/17 08:00 97.8 69 18 128/73 97 97.8 10/14/17 04:00 97.6 74 18 115/74 96 97.6 10/14/17 00:00 97.7 87 18 110/68 97 97.7 10/13/17 20:00 98.8 110 20 121/81 97 98.8 10/13/17 16:00 98.2 86 20 142/95 98 Room Air 98.2 10/13/17 15:25 97.8 73 14 124/83 99 Room Air 10/13/17 13:30 98.3 80 18 112/89 100 Room Air 98.3 10/13/17 11:30 75 14 120/74 99 Room Air Intake and Output 10/13/17 10/14/17 19:00 07:00 Intake Total 1256 ml 1800 ml Output Total 300 ml 1500 ml Balance 956 ml 300 ml Intake Oral 200 ml 800 ml IV Total 1056 ml 1000 ml Output Urine Total 300 ml 1500 ml # Voids 2 Laboratory Tests 10/13/17 13:10: Urine Color Pale yellow, Urine Appearance Clear, Urine pH 6, Urine Specific [place] 1.020, Urine Protein Negative, Urine Glucose (UA) Negative, Urine Ketones 2+H, Urine Occult Blood 1+H, Urine Nitrite Negative, Urine Bilirubin Negative, Urine Urobilinogen Normal, Urine Leukocyte Esterase Negative, Urine RBC 0-2H, Urine WBC 0-2, Urine Squamous Epithelial Cells Few, Urine Bacteria Occasional, Urine Mucus FewH, Urine Opiates Screen Negative, Urine Barbiturates Screen Negative, Phencyclidine (PCP) Screen Negative, Urine Amphetamines Screen Negative, Urine Benzodiazepines Screen PositiveH, Urine Cocaine Screen Negative , Urine Marijuana (THC) Screen Negative 10/13/17 16:15: White Blood Count 3.1#L, Red Blood Count 3.22L, Hemoglobin 11.2L, Hematocrit 33.0L, Mean Corpuscular Volume 103H, Mean Corpuscular Hemoglobin 34.8H, Mean Corpuscular Hemoglobin Concent 33.9, Red Cell Distribution Width 13.9, Platelet Count 178, Mean Platelet Volume 6.8, Neutrophils (%) (Auto) , Lymphocytes (%) ( Auto) , Monocytes (%) (Auto) , Eosinophils (%) (Auto) , Basophils (%) (Auto) , Sodium Level 139, Potassium Level 4.0, Chloride Level 102, Carbon Dioxide Level 24, Anion Gap 13, Blood Urea Nitrogen 4L, Creatinine 0.6, Estimat Glomerular Filtration Rate > 60, Glucose Level 74, Calcium Level 8.3L, Total Bilirubin 0.6 , Aspartate Amino Transf (AST/SGOT) 60H, Alanine Aminotransferase (ALT/SGPT) 34 , Alkaline Phosphatase 87, C-Reactive Protein, Quantitative > 70.0H, Total Protein 6.7, Albumin 2.9L, Globulin 3.8, Albumin/Globulin Ratio 0.8L, Vitamin B12 Level 540, Vitamin D 25-Hydroxy [Pending], 25-Hydroxy Vitamin D2 [Pending], 25-Hydroxy Vitamin D3 [Pending], Thyroid Stimulating Hormone (TSH) 4.050H 10/14/17 07:50: White Blood Count 3.4L, Red Blood Count 3.24L, Hemoglobin 11.5L, Hematocrit 33.7L, Mean Corpuscular Volume 104H, Mean Corpuscular Hemoglobin 35.4H, Mean Corpuscular Hemoglobin Concent 34.1, Red Cell Distribution Width 14.3, Platelet Count 170, Mean Platelet Volume 7.3, Neutrophils (%) (Auto) , Lymphocytes (%) ( Auto) , Monocytes (%) (Auto) , Eosinophils (%) (Auto) , Basophils (%) (Auto) , Sodium Level 136, Potassium Level 3.6, Chloride Level 102, Carbon Dioxide Level 25, Anion Gap 10, Blood Urea Nitrogen 5L, Creatinine 0.7, Estimat Glomerular Filtration Rate > 60, Glucose Level 128H, Calcium Level 8.3L, Total Bilirubin 0.9, Aspartate Amino Transf (AST/SGOT) 41H, Alanine Aminotransferase (ALT/SGPT) 31, Alkaline Phosphatase 82, Total Protein 6.6, Albumin 2.7L, Globulin 3.9, Albumin/Globulin Ratio 0.7L, Differential Total Cells Counted 100, Neutrophils % (Manual) 60, Lymphocytes % (Manual) 33, Monocytes % (Manual) 7, Eosinophils % (Manual) 0, Basophils % (Manual) 0, Band Neutrophils 0, Platelet Estimate Adequate, Platelet Morphology Normal, Hypochromasia 1+, Anisocytosis 1+, Macrocytosis 1+, Hemoglobin A1c 6.0, Uric Acid 7.6H, Phosphorus Level 3.5, Magnesium Level 1.9, Gamma Glutamyl Transpeptidase 46, Total Creatine Kinase 182 , Pro-B-Type Natriuretic Peptide 67, Triglycerides Level 52, Cholesterol Level 157, LDL Cholesterol 83, HDL Cholesterol 69H, Cholesterol/HDL Ratio 2.3L, Lipase 435H, Folate 18.3 Height (Feet): 5 Height (Inches): 8.00 Weight (Pounds): 170 Dwain Wren M.D. Oct 14, 2017 11:20
--- NOTE | 2017-10-14 11:25 | Nephrology Progress Note ---
Assessment/Plan Problem List: (1) Alcohol withdrawal (2) Alcohol intoxication (3) Epileptic seizure, generalized Assessment Epileptic seizure, generalized Alcohol intoxication Facial abrasion Alcohol withdrawal Plan hydrate mag as needed Thiamin per consultants Subjective ROS Limited/Unobtainable: No Constitutional: Reports: malaise Objective Objective Last 24 Hour Vital Signs Date Time Temp Pulse Resp B/P (MAP) Pulse Ox O2 Delivery O2 Flow Rate FiO2 10/14/17 08:00 97.8 69 18 128/73 97 97.8 10/14/17 04:00 97.6 74 18 115/74 96 97.6 10/14/17 00:00 97.7 87 18 110/68 97 97.7 10/13/17 20:00 98.8 110 20 121/81 97 98.8 10/13/17 16:00 98.2 86 20 142/95 98 Room Air 98.2 10/13/17 15:25 97.8 73 14 124/83 99 Room Air 10/13/17 13:30 98.3 80 18 112/89 100 Room Air 98.3 10/13/17 11:30 75 14 120/74 99 Room Air Intake and Output 10/13/17 10/14/17 19:00 07:00 Intake Total 1256 ml 1800 ml Output Total 300 ml 1500 ml Balance 956 ml 300 ml Intake Oral 200 ml 800 ml IV Total 1056 ml 1000 ml Output Urine Total 300 ml 1500 ml # Voids 2 Laboratory Tests 10/13/17 13:10: Urine Color Pale yellow, Urine Appearance Clear, Urine pH 6, Urine Specific [place] 1.020, Urine Protein Negative, Urine Glucose (UA) Negative, Urine Ketones 2+H, Urine Occult Blood 1+H, Urine Nitrite Negative, Urine Bilirubin Negative, Urine Urobilinogen Normal, Urine Leukocyte Esterase Negative, Urine RBC 0-2H, Urine WBC 0-2, Urine Squamous Epithelial Cells Few, Urine Bacteria Occasional, Urine Mucus FewH, Urine Opiates Screen Negative, Urine Barbiturates Screen Negative, Phencyclidine (PCP) Screen Negative, Urine Amphetamines Screen Negative, Urine Benzodiazepines Screen PositiveH, Urine Cocaine Screen Negative , Urine Marijuana (THC) Screen Negative 10/13/17 16:15: White Blood Count 3.1#L, Red Blood Count 3.22L, Hemoglobin 11.2L, Hematocrit 33.0L, Mean Corpuscular Volume 103H, Mean Corpuscular Hemoglobin 34.8H, Mean Corpuscular Hemoglobin Concent 33.9, Red Cell Distribution Width 13.9, Platelet Count 178, Mean Platelet Volume 6.8, Neutrophils (%) (Auto) , Lymphocytes (%) ( Auto) , Monocytes (%) (Auto) , Eosinophils (%) (Auto) , Basophils (%) (Auto) , Sodium Level 139, Potassium Level 4.0, Chloride Level 102, Carbon Dioxide Level 24, Anion Gap 13, Blood Urea Nitrogen 4L, Creatinine 0.6, Estimat Glomerular Filtration Rate > 60, Glucose Level 74, Calcium Level 8.3L, Total Bilirubin 0.6 , Aspartate Amino Transf (AST/SGOT) 60H, Alanine Aminotransferase (ALT/SGPT) 34 , Alkaline Phosphatase 87, C-Reactive Protein, Quantitative > 70.0H, Total Protein 6.7, Albumin 2.9L, Globulin 3.8, Albumin/Globulin Ratio 0.8L, Vitamin B12 Level 540, Vitamin D 25-Hydroxy [Pending], 25-Hydroxy Vitamin D2 [Pending], 25-Hydroxy Vitamin D3 [Pending], Thyroid Stimulating Hormone (TSH) 4.050H 10/14/17 07:50: White Blood Count 3.4L, Red Blood Count 3.24L, Hemoglobin 11.5L, Hematocrit 33.7L, Mean Corpuscular Volume 104H, Mean Corpuscular Hemoglobin 35.4H, Mean Corpuscular Hemoglobin Concent 34.1, Red Cell Distribution Width 14.3, Platelet Count 170, Mean Platelet Volume 7.3, Neutrophils (%) (Auto) , Lymphocytes (%) ( Auto) , Monocytes (%) (Auto) , Eosinophils (%) (Auto) , Basophils (%) (Auto) , Sodium Level 136, Potassium Level 3.6, Chloride Level 102, Carbon Dioxide Level 25, Anion Gap 10, Blood Urea Nitrogen 5L, Creatinine 0.7, Estimat Glomerular Filtration Rate > 60, Glucose Level 128H, Calcium Level 8.3L, Total Bilirubin 0.9, Aspartate Amino Transf (AST/SGOT) 41H, Alanine Aminotransferase (ALT/SGPT) 31, Alkaline Phosphatase 82, Total Protein 6.6, Albumin 2.7L, Globulin 3.9, Albumin/Globulin Ratio 0.7L, Differential Total Cells Counted 100, Neutrophils % (Manual) 60, Lymphocytes % (Manual) 33, Monocytes % (Manual) 7, Eosinophils % (Manual) 0, Basophils % (Manual) 0, Band Neutrophils 0, Platelet Estimate Adequate, Platelet Morphology Normal, Hypochromasia 1+, Anisocytosis 1+, Macrocytosis 1+, Hemoglobin A1c 6.0, Uric Acid 7.6H, Phosphorus Level 3.5, Magnesium Level 1.9, Gamma Glutamyl Transpeptidase 46, Total Creatine Kinase 182 , Pro-B-Type Natriuretic Peptide 67, Triglycerides Level 52, Cholesterol Level 157, LDL Cholesterol 83, HDL Cholesterol 69H, Cholesterol/HDL Ratio 2.3L, Lipase 435H, Folate 18.3 Height (Feet): 5 Height (Inches): 8.00 Weight (Pounds): 170 RASHAWN JOVEL Oct 14, 2017 11:24
[2017-10-14 12:00] VITALS: BP 114/62
--- NOTE | 2017-10-14 12:31 | Diagnostic Imaging Report ---
Indication: Pain Technique: 2 views of the right hip Comparison: none Findings: No acute fractures. No dislocations. The joint spaces are preserved Impression: Negative
--- NOTE | 2017-10-14 12:32 | Diagnostic Imaging Report ---
Indication: Hip pain Technique: 2 views of the left hip Comparison: none Findings: No acute fractures. No dislocations. The joint spaces are preserved Impression: Negative
[2017-10-14 16:00] VITALS: BP 110/76
--- NOTE | 2017-10-14 16:55 | General Progress Note ---
Assessment/Plan Problem List: (1) Alcohol intoxication ICD Codes: F10.929 - Alcohol use, unspecified with intoxication, unspecified SNOMED: 31925089 (2) Facial abrasion ICD Codes: S00.81XA - Abrasion of other part of head, initial encounter SNOMED: 554712435 (3) Alcohol withdrawal ICD Codes: F10.239 - Alcohol dependence with withdrawal, unspecified SNOMED: 851820132 Status: progressing Assessment/Plan afebrile vitals stable etoh r/o DT check cbc moniter for bleeding reviewed chart and labs Subjective HEENT: Reports: no symptoms Cardiovascular: Reports: no symptoms Respiratory: Reports: no symptoms Gastrointestinal/Abdominal: Reports: abdominal pain Allergies: Coded Allergies: UNABLE TO ASSESS (Unverified , 10/12/17) PT NOT ABLE TO STATE Subjective abdominal pain Objective Last 24 Hour Vital Signs Date Time Temp Pulse Resp B/P (MAP) Pulse Ox O2 Delivery O2 Flow Rate FiO2 10/14/17 16:00 97.1 87 20 110/76 97 Room Air 97.1 10/14/17 12:00 97.4 64 20 114/62 97 97.4 10/14/17 08:00 97.8 69 18 128/73 97 97.8 10/14/17 04:00 97.6 74 18 115/74 96 97.6 10/14/17 00:00 97.7 87 18 110/68 97 97.7 10/13/17 20:00 98.8 110 20 121/81 97 98.8 Intake and Output 10/13/17 10/14/17 19:00 07:00 Intake Total 1256 ml 1800 ml Output Total 300 ml 1500 ml Balance 956 ml 300 ml Intake Oral 200 ml 800 ml IV Total 1056 ml 1000 ml Output Urine Total 300 ml 1500 ml # Voids 2 Laboratory Tests 10/14/17 07:50: White Blood Count 3.4L, Red Blood Count 3.24L, Hemoglobin 11.5L, Hematocrit 33.7L, Mean Corpuscular Volume 104H, Mean Corpuscular Hemoglobin 35.4H, Mean Corpuscular Hemoglobin Concent 34.1, Red Cell Distribution Width 14.3, Platelet Count 170, Mean Platelet Volume 7.3, Neutrophils (%) (Auto) , Lymphocytes (%) ( Auto) , Monocytes (%) (Auto) , Eosinophils (%) (Auto) , Basophils (%) (Auto) , Differential Total Cells Counted 100, Neutrophils % (Manual) 60, Lymphocytes % ( Manual) 33, Monocytes % (Manual) 7, Eosinophils % (Manual) 0, Basophils % ( Manual) 0, Band Neutrophils 0, Platelet Estimate Adequate, Platelet Morphology Normal, Hypochromasia 1+, Anisocytosis 1+, Macrocytosis 1+, Sodium Level 136, Potassium Level 3.6, Chloride Level 102, Carbon Dioxide Level 25, Anion Gap 10, Blood Urea Nitrogen 5L, Creatinine 0.7, Estimat Glomerular Filtration Rate > 60 , Glucose Level 128H, Hemoglobin A1c 6.0, Uric Acid 7.6H, Calcium Level 8.3L, Phosphorus Level 3.5, Magnesium Level 1.9, Total Bilirubin 0.9, Gamma Glutamyl Transpeptidase 46, Aspartate Amino Transf (AST/SGOT) 41H, Alanine Aminotransferase (ALT/SGPT) 31, Alkaline Phosphatase 82, Total Creatine Kinase 182, Pro-B-Type Natriuretic Peptide 67, Total Protein 6.6, Albumin 2.7L, Globulin 3.9, Albumin/Globulin Ratio 0.7L, Triglycerides Level 52, Cholesterol Level 157, LDL Cholesterol 83, HDL Cholesterol 69H, Cholesterol/HDL Ratio 2.3L, Lipase 435H, Folate 18.3 Height (Feet): 5 Height (Inches): 8.00 Weight (Pounds): 170 Neck: supple Cardiovascular: normal rate Respiratory/Chest: lungs clear Abdomen: tender Britney Matos MD Oct 14, 2017 16:55
[2017-10-14] MEDS ORDERED: D5NS 1000ml IV ONE (17:11)
[2017-10-14] MEDS ORDERED: Tubing IV Secondary IV ONE (17:11)
[2017-10-14 20:00] VITALS: BP 129/82
[2017-10-14] MEDS: Depakote 500mg tab ORAL SCH (20:55)
--- NOTE | 2017-10-14 21:04 | Cardiology Progress Note ---
Assessment/Plan Assessment/Plan The patient is seen and examined, full consult note will be dictated shortly. Objective Last 24 Hour Vital Signs Date Time Temp Pulse Resp B/P (MAP) Pulse Ox O2 Delivery O2 Flow Rate FiO2 10/14/17 16:00 97.1 87 20 110/76 97 Room Air 97.1 10/14/17 12:00 97.4 64 20 114/62 97 97.4 10/14/17 08:00 97.8 69 18 128/73 97 97.8 10/14/17 04:00 97.6 74 18 115/74 96 97.6 10/14/17 00:00 97.7 87 18 110/68 97 97.7 Intake and Output 10/13/17 10/14/17 19:00 07:00 Intake Total 1256 ml 1800 ml Output Total 300 ml 1500 ml Balance 956 ml 300 ml Intake Oral 200 ml 800 ml IV Total 1056 ml 1000 ml Output Urine Total 300 ml 1500 ml # Voids 2 # Bowel Movements 1 Laboratory Tests Test 10/14/17 07:50 White Blood Count 3.4 K/UL (4.8-10.8) L Red Blood Count 3.24 M/UL (4.70-6.10) L Hemoglobin 11.5 G/DL (14.2-18.0) L Hematocrit 33.7 % (42.0-52.0) L Mean Corpuscular Volume 104 FL (80-99) H Mean Corpuscular Hemoglobin 35.4 PG (27.0-31.0) H Mean Corpuscular Hemoglobin Concent 34.1 G/DL (32.0-36.0) Red Cell Distribution Width 14.3 % (11.6-14.8) Platelet Count 170 K/UL (150-450) Mean Platelet Volume 7.3 FL (6.5-10.1) Neutrophils (%) (Auto) % (45.0-75.0) Lymphocytes (%) (Auto) % (20.0-45.0) Monocytes (%) (Auto) % (1.0-10.0) Eosinophils (%) (Auto) % (0.0-3.0) Basophils (%) (Auto) % (0.0-2.0) Differential Total Cells Counted 100 Neutrophils % (Manual) 60 % (45-75) Lymphocytes % (Manual) 33 % (20-45) Monocytes % (Manual) 7 % (1-10) Eosinophils % (Manual) 0 % (0-3) Basophils % (Manual) 0 % (0-2) Band Neutrophils 0 % (0-8) Platelet Estimate Adequate Platelet Morphology Normal Hypochromasia 1+ Anisocytosis 1+ Macrocytosis 1+ Sodium Level 136 MMOL/L (136-145) Potassium Level 3.6 MMOL/L (3.5-5.1) Chloride Level 102 MMOL/L (98-107) Carbon Dioxide Level 25 MMOL/L (21-32) Anion Gap 10 mmol/L (5-15) Blood Urea Nitrogen 5 mg/dL (7-18) L Creatinine 0.7 MG/DL (0.55-1.30) Estimat Glomerular Filtration Rate > 60 mL/min (>60) Glucose Level 128 MG/DL (74-106) H Hemoglobin A1c 6.0 % (4.3-6.0) Uric Acid 7.6 MG/DL (2.6-7.2) H Calcium Level 8.3 MG/DL (8.5-10.1) L Phosphorus Level 3.5 MG/DL (2.5-4.9) Magnesium Level 1.9 MG/DL (1.8-2.4) Total Bilirubin 0.9 MG/DL (0.2-1.0) Gamma Glutamyl Transpeptidase 46 U/L (5-85) Aspartate Amino Transf (AST/SGOT) 41 U/L (15-37) H Alanine Aminotransferase (ALT/SGPT) 31 U/L (12-78) Alkaline Phosphatase 82 U/L (46-116) Total Creatine Kinase 182 U/L (26-308) Pro-B-Type Natriuretic Peptide 67 pg/mL (0-125) Total Protein 6.6 G/DL (6.4-8.2) Albumin 2.7 G/DL (3.4-5.0) L Globulin 3.9 g/dL Albumin/Globulin Ratio 0.7 (1.0-2.7) L Triglycerides Level 52 MG/DL (30-150) Cholesterol Level 157 MG/DL (< 200) LDL Cholesterol 83 mg/dL (<100) HDL Cholesterol 69 MG/DL (40-60) H Cholesterol/HDL Ratio 2.3 (3.3-4.4) L Lipase 435 U/L (73-393) H Folate 18.3 NG/ML (8.6-58.9) SUSAN JIMÉNEZ Oct 14, 2017 21:03
--- NOTE | 2017-10-14 23:03 | General Progress Note ---
Assessment/Plan Assessment/Plan Assessment - ETOH abuse - marrow suppression - Etoh Hepatitis Recommendations - IVF - Folate - BDZ - po as tolerated - d/c EtOH Subjective Allergies: Coded Allergies: UNABLE TO ASSESS (Unverified , 10/12/17) PT NOT ABLE TO STATE Subjective no c/o tolerating PO Objective Last 24 Hour Vital Signs Date Time Temp Pulse Resp B/P (MAP) Pulse Ox O2 Delivery O2 Flow Rate FiO2 10/14/17 20:00 97.7 96 20 129/82 96 97.7 10/14/17 16:00 97.1 87 20 110/76 97 Room Air 97.1 10/14/17 12:00 97.4 64 20 114/62 97 97.4 10/14/17 08:00 97.8 69 18 128/73 97 97.8 10/14/17 04:00 97.6 74 18 115/74 96 97.6 10/14/17 00:00 97.7 87 18 110/68 97 97.7 Intake and Output 10/13/17 10/14/17 19:00 07:00 Intake Total 1256 ml 1800 ml Output Total 300 ml 1500 ml Balance 956 ml 300 ml Intake Oral 200 ml 800 ml IV Total 1056 ml 1000 ml Output Urine Total 300 ml 1500 ml # Voids 2 # Bowel Movements 1 Laboratory Tests 10/14/17 07:50: White Blood Count 3.4L, Red Blood Count 3.24L, Hemoglobin 11.5L, Hematocrit 33.7L, Mean Corpuscular Volume 104H, Mean Corpuscular Hemoglobin 35.4H, Mean Corpuscular Hemoglobin Concent 34.1, Red Cell Distribution Width 14.3, Platelet Count 170, Mean Platelet Volume 7.3, Neutrophils (%) (Auto) , Lymphocytes (%) ( Auto) , Monocytes (%) (Auto) , Eosinophils (%) (Auto) , Basophils (%) (Auto) , Differential Total Cells Counted 100, Neutrophils % (Manual) 60, Lymphocytes % ( Manual) 33, Monocytes % (Manual) 7, Eosinophils % (Manual) 0, Basophils % ( Manual) 0, Band Neutrophils 0, Platelet Estimate Adequate, Platelet Morphology Normal, Hypochromasia 1+, Anisocytosis 1+, Macrocytosis 1+, Sodium Level 136, Potassium Level 3.6, Chloride Level 102, Carbon Dioxide Level 25, Anion Gap 10, Blood Urea Nitrogen 5L, Creatinine 0.7, Estimat Glomerular Filtration Rate > 60 , Glucose Level 128H, Hemoglobin A1c 6.0, Uric Acid 7.6H, Calcium Level 8.3L, Phosphorus Level 3.5, Magnesium Level 1.9, Total Bilirubin 0.9, Gamma Glutamyl Transpeptidase 46, Aspartate Amino Transf (AST/SGOT) 41H, Alanine Aminotransferase (ALT/SGPT) 31, Alkaline Phosphatase 82, Total Creatine Kinase 182, Pro-B-Type Natriuretic Peptide 67, Total Protein 6.6, Albumin 2.7L, Globulin 3.9, Albumin/Globulin Ratio 0.7L, Triglycerides Level 52, Cholesterol Level 157, LDL Cholesterol 83, HDL Cholesterol 69H, Cholesterol/HDL Ratio 2.3L, Lipase 435H, Folate 18.3 Height (Feet): 5 Height (Inches): 8.00 Weight (Pounds): 170 Objective WDWN NCAT supple CTA RR Soft ND NT no edema MAGED DUMONT Oct 14, 2017 23:03
[2017-10-15] VITALS (7 sets, daily range): BP systolic 121–148; BP diastolic 81–94
--- NOTE | 2017-10-15 00:16 | Consultation ---
DATE OF CONSULTATION: 10/14/2017 HEMATOLOGY/ONCOLOGY CONSULTATION CONSULTING PHYSICIAN: Niko Benjamin M.D. REQUESTING PHYSICIAN: Britney Matos M.D. REASON FOR CONSULTATION: Evaluation of leukopenia and anemia. IDENTIFICATION DATA: Dear Dr. Matos, The patient is a pleasant 47-year-old male with past medical history significant for alcohol abuse, at this time presents with alcohol intoxication and withdrawal, somewhat confused, awake, and calm. Speaks [place]ian, however, speaks Egyptian mostly. Some degree of abnormal liver function tests was noted, hepatitis, as well as leukopenia. Therefore, Hematology Service was consulted for further evaluation and treatment. PAST MEDICAL HISTORY: Alcohol abuse. SOCIAL HISTORY: Non-Namibian speaking, only speaks Egyptian. FAMILY HISTORY: Noncontributory. REVIEW OF SYSTEMS: CONSTITUTIONAL: No fevers, chills, or night sweats. SKIN: No rashes, bumps, or itching. HEENT: No headache, hearing or vision changes. BREASTS: No lumps, pain, or discharge. PULMONARY: No cough, sputum, or shortness of breath. GASTROINTESTINAL: No nausea, vomiting, or diarrhea. GENITOURINARY: No dysuria, frequency, or urgency. MUSCULOSKELETAL: No joint swelling, muscle pain, or trauma. PHYSICAL EXAMINATION: VITAL SIGNS: Reviewed. GENERAL: No acute distress. PULMONARY: Decreased breath sounds. CARDIOVASCULAR: Regular rate. No S3 or S4. ABDOMEN: Soft, nontender, and nondistended. EXTREMITIES: No cyanosis, swelling, or edema noted. LABORATORY DATA: WBC 3.4, hemoglobin 11.5, hematocrit 34, and platelet count 120,000. Chemistry, BUN of 5 and creatinine 0.7. AST 41. ASSESSMENT AND RECOMMENDATIONS: 1. Leukopenia, likely secondary to alcoholic myelosuppression with splenomegaly and cirrhosis. Continue to closely monitor. Currently has improved. 2. Anemia of chronic disease. Continue to closely monitor. 3. Alcohol intoxication and myelosuppression. 4. Facial abrasion, potential fall. 5. Epileptic seizure, generalized, has been seen by Neurology team. 6. 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 Monitor for withdrawal. Continue benzodiazepines, multivitamin, folate, and thiamine. 7. I appreciate consultation. Niko Benjamin M.D. DR: SHILOH JOB#: [id number] CC:
[2017-10-15] MEDS: Magnesium Oxide 400mg tab ORAL SCH ×3 (08:31→17:02)
[2017-10-15] MEDS: Thiamine HCl 100mg/ml 2 ml Inj IM SCH (08:32)
--- NOTE | 2017-10-15 11:01 | General Progress Note ---
Assessment/Plan Assessment/Plan Assessment - ETOH abuse - marrow suppression - Etoh Hepatitis Recommendations - IVF - Folate - BDZ - po as tolerated - d/c EtOH - d/c planning Subjective Allergies: Coded Allergies: UNABLE TO ASSESS (Unverified , 10/12/17) PT NOT ABLE TO STATE Subjective no c/o tolerating PO Objective Last 24 Hour Vital Signs Date Time Temp Pulse Resp B/P (MAP) Pulse Ox O2 Delivery O2 Flow Rate FiO2 10/15/17 08:00 98.1 82 128/87 98.1 10/15/17 04:00 97.8 76 20 148/91 98 97.8 10/15/17 00:00 98.6 72 20 124/87 96 98.6 10/14/17 20:00 97.7 96 20 129/82 96 97.7 10/14/17 16:00 97.1 87 20 110/76 97 Room Air 97.1 10/14/17 12:00 97.4 64 20 114/62 97 97.4 Intake and Output 10/14/17 10/15/17 19:00 07:00 Intake Total 1220 ml 740 ml Output Total 1200 ml Balance 1220 ml -460 ml Intake Oral 720 ml 240 ml IV Total 500 ml 500 ml Output Urine Total 1200 ml # Voids 2 # Bowel Movements 1 Height (Feet): 5 Height (Inches): 8.00 Weight (Pounds): 170 Objective WDWN NCAT supple CTA RR Soft ND NT no edema MAGED DUMONT Oct 15, 2017 11:01
--- NOTE | 2017-10-15 15:26 | Nephrology Progress Note ---
Assessment/Plan Problem List: (1) Alcohol withdrawal (2) Alcohol intoxication (3) Epileptic seizure, generalized Assessment Epileptic seizure, generalized Alcohol intoxication Facial abrasion Alcohol withdrawal Plan stop hydrate mag as needed Thiamin per consultants Subjective ROS Limited/Unobtainable: No Objective Objective Last 24 Hour Vital Signs Date Time Temp Pulse Resp B/P (MAP) Pulse Ox O2 Delivery O2 Flow Rate FiO2 10/15/17 12:00 98.0 80 18 125/82 99 Room Air 98.0 10/15/17 08:00 98.1 82 128/87 98.1 10/15/17 04:00 97.8 76 20 148/91 98 97.8 10/15/17 00:00 98.6 72 20 124/87 96 98.6 10/14/17 20:00 97.7 96 20 129/82 96 97.7 10/14/17 16:00 97.1 87 20 110/76 97 Room Air 97.1 Intake and Output 10/14/17 10/15/17 19:00 07:00 Intake Total 1220 ml 740 ml Output Total 1200 ml Balance 1220 ml -460 ml Intake Oral 720 ml 240 ml IV Total 500 ml 500 ml Output Urine Total 1200 ml # Voids 2 # Bowel Movements 1 Height (Feet): 5 Height (Inches): 8.00 Weight (Pounds): 170 General Appearance: no apparent distress Objective no change RASHAWN JOVEL 22, 2018 15:26
--- NOTE | 2017-10-15 21:03 | General Progress Note ---
Assessment/Plan Problem List: (1) Alcohol intoxication ICD Codes: F10.929 - Alcohol use, unspecified with intoxication, unspecified SNOMED: 81018083 (2) Facial abrasion ICD Codes: S00.81XA - Abrasion of other part of head, initial encounter SNOMED: 806045717 (3) Alcohol withdrawal ICD Codes: F10.239 - Alcohol dependence with withdrawal, unspecified SNOMED: 121667125 Status: progressing Assessment/Plan neutropenia resolved afebrile etoh r/o DT check cbc Subjective ROS Limited/Unobtainable: Yes Constitutional: Reports: no symptoms Allergies: Coded Allergies: UNABLE TO ASSESS (Unverified , 10/12/17) PT NOT ABLE TO STATE Subjective abdominal pain Objective Last 24 Hour Vital Signs Date Time Temp Pulse Resp B/P (MAP) Pulse Ox O2 Delivery O2 Flow Rate FiO2 10/15/17 19:50 97.9 76 18 132/94 97 97.9 10/15/17 16:17 97.7 86 18 127/81 Room Air 97.7 10/15/17 15:57 98.4 79 21 121/84 95 Room Air 98.4 10/15/17 12:00 98.0 80 18 125/82 99 Room Air 98.0 10/15/17 08:00 98.1 82 128/87 98.1 10/15/17 04:00 97.8 76 20 148/91 98 97.8 10/15/17 00:00 98.6 72 20 124/87 96 98.6 Intake and Output 10/14/17 10/15/17 18:59 06:59 Intake Total 1220 ml 740 ml Output Total 1200 ml Balance 1220 ml -460 ml Intake Oral 720 ml 240 ml IV Total 500 ml 500 ml Output Urine Total 1200 ml # Voids 2 # Bowel Movements 1 Height (Feet): 5 Height (Inches): 8.00 Weight (Pounds): 170 Cardiovascular: normal rate Respiratory/Chest: lungs clear Britney Matos MD Oct 15, 2017 21:03
--- NOTE | 2017-10-15 21:46 | Consultation ---
DATE OF CONSULTATION: 10/15/2017 INFECTIOUS DISEASE CONSULTATION CONSULTING PHYSICIAN: Juan Romano M.D. PRIMARY ATTENDING PHYSICIAN: Britney Matos M.D. REASON FOR CONSULT: VRE colonization. HISTORY OF PRESENT ILLNESS: The patient is a 47-year-old male, admitted on 10/13/2017 because of altered mental status, seizure disorder, also was suspected to have alcohol intoxication and alcohol withdrawal. During the hospitalization has leukopenia that is improving. 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 PAST MEDICAL HISTORY: The patient is homeless. seizure disorder and has big prostate. MEDICATIONS: Getting gabapentin, thiamine, cyclobenzaprine, Valium, Depakote, Tylenol, and magnesium oxide. ALLERGIES: No known drug allergies. SOCIAL HISTORY: Originally from [facility]. Homeless. Smoker and drink alcohol. REVIEW OF SYSTEMS: No fever. No chills. No runny nose. No sinus problems. He has some coughing, but occasionally is productive. No urinary symptoms at this time. PHYSICAL EXAMINATION: VITAL SIGNS: Temperature 98.1 degrees, pulse 82, blood pressure 128/87. GENERAL APPEARANCE: No acute distress, seems well developed. HEAD AND NECK: No oral lesion. HEART: S1 and S2. Regular. LUNGS: Clear. ABDOMEN: Soft and nontender. BREASTS: Seems to have some gynecomastia. EXTREMITY: No edema. NEUROLOGIC: Awake, alert, and oriented. LABORATORY AND DIAGNOSTIC DATA: Sodium 136, potassium 3.6, chloride 102, bicarbonate 25, BUN 5, creatinine 0.7 and glucose 128. Calcium is 7.6. Albumin 2.7. Lipase is 435. WBC 3.4, hemoglobin 11.5, hematocrit 33.7, and platelets 104. WBC at the time of admission was 107. CT scan of the head shows volume loss and sinus disorder. Hip x-ray was negative. Chest x-ray was negative. 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 2. Leukopenia, that is improving. 3. Sinusitis on CT scan, that seems to be chronic and no acute component now. 4. The patient has thrombocytopenia. 5. Epileptic seizure. 6. Alcohol withdrawal, alcohol intoxication. RECOMMENDATION: Observe off antibiotic. Contact isolation in hospital. At the end of my exam, I thank Dr. Matos for involving me in the care of this patient. Juan Romano M.D. DR: DALE JOB#: [id number] CC: TREVA
--- NOTE | 2017-10-15 21:57 | General Progress Note ---
Subjective Date patient seen: Oct 15, 2017 Allergies: Coded Allergies: UNABLE TO ASSESS (Unverified , 10/12/17) PT NOT ABLE TO STATE Subjective the pt is turkish speaking. the pt is Objective Last 24 Hour Vital Signs Date Time Temp Pulse Resp B/P (MAP) Pulse Ox O2 Delivery O2 Flow Rate FiO2 10/15/17 19:50 97.9 76 18 132/94 97 97.9 10/15/17 16:17 97.7 86 18 127/81 Room Air 97.7 10/15/17 15:57 98.4 79 21 121/84 95 Room Air 98.4 10/15/17 12:00 98.0 80 18 125/82 99 Room Air 98.0 10/15/17 08:00 98.1 82 128/87 98.1 10/15/17 04:00 97.8 76 20 148/91 98 97.8 10/15/17 00:00 98.6 72 20 124/87 96 98.6 Intake and Output 10/14/17 10/15/17 19:00 07:00 Intake Total 1220 ml 740 ml Output Total 1200 ml Balance 1220 ml -460 ml Intake Oral 720 ml 240 ml IV Total 500 ml 500 ml Output Urine Total 1200 ml # Voids 2 # Bowel Movements 1 Height (Feet): 5 Height (Inches): 8.00 Weight (Pounds): 170 Dwain Wren M.D. Oct 15, 2017 21:56
[2017-10-15] MEDS: Depakote 500mg tab ORAL SCH (23:21)
--- NOTE | 2017-10-15 23:53 | Cardiology Progress Note ---
Assessment/Plan Assessment/Plan 1. Sinus tachycardia, continue hydration. 2. Alcohol hepatitis. 3. Macrocytic anemia. Subjective Subjective Denies chest pain or SOB. Not on the telemetry unit. Objective Last 24 Hour Vital Signs Date Time Temp Pulse Resp B/P (MAP) Pulse Ox O2 Delivery O2 Flow Rate FiO2 10/15/17 19:50 97.9 76 18 132/94 97 97.9 10/15/17 16:17 97.7 86 18 127/81 Room Air 97.7 10/15/17 15:57 98.4 79 21 121/84 95 Room Air 98.4 10/15/17 12:00 98.0 80 18 125/82 99 Room Air 98.0 10/15/17 08:00 98.1 82 128/87 98.1 10/15/17 04:00 97.8 76 20 148/91 98 97.8 10/15/17 00:00 98.6 72 20 124/87 96 98.6 Intake and Output 10/14/17 10/15/17 18:59 06:59 Intake Total 1220 ml 740 ml Output Total 1200 ml Balance 1220 ml -460 ml Intake Oral 720 ml 240 ml IV Total 500 ml 500 ml Output Urine Total 1200 ml # Voids 2 # Bowel Movements 1 Microbiology Date/Time Source Procedure Growth Status 10/13/17 10:20 Nasal Nares MRSA Culture - Final NO METHICILLIN RESISTANT STAPH AUREUS... Complete 10/13/17 10:20 Rectum VRE Culture - Final Enterococcus Faecium - Vre Complete Objective HEENT: Normocephalic, atraumatic, PERRLA, EOMI. PULMONARY: Decreased breath sounds. CARDIOVASCULAR: Regular rate rhythm. Normal S1 S2, No S3 or S4. No murmurs, rubs. ABDOMEN: Soft, nontender, and nondistended, + BS EXTREMITIES: No cyanosis, swelling, or edema noted. SUSAN JIMÉNEZ Oct 15, 2017 23:53
[2017-10-16] VITALS: BP 124/79
--- NOTE | 2017-10-16 02:01 | Consultation ---
DATE OF CONSULTATION: 10/14/2017 CARDIOLOGY CONSULTATION REFERRING PHYSICIAN: Britney Matos M.D. REASON FOR CONSULTATION: Syncope. HISTORY OF PRESENT ILLNESS: The patient is a very unfortunate 47-year-old gentleman who presents to the hospital after questionable altered level of consciousness. He was brought in by EMS. There was a questionable seizure activity versus syncopal event. He was noted to have had substantial alcohol intake. The patient at the time of arrival to the emergency department had a blood pressure of 112/70 and pulse of 60. He was found to have tachycardia and was in alcohol withdrawal. He received Ativan x2 and Librium and admitted to telemetry bed. Cardiology consultation was made at the request of Dr. Matos for management of tachycardia as well as possible syncopal event. PAST MEDICAL HISTORY: Alcohol abuse. PAST SURGICAL HISTORY: None. MEDICATIONS: List of medications, none. ALLERGIES: None. FAMILY HISTORY: No premature coronary artery disease in first-degree relatives. REVIEW OF SYSTEMS: A 12-system review done essentially negative except what mentioned in the history of present illness. PHYSICAL EXAMINATION: VITAL SIGNS: Blood pressure is 112/70, respirations 16, pulse of 68, O2 saturation 100% on room air, and temperature 97.9 degrees Fahrenheit. GENERAL: The patient is a very unfortunate 47-year-old gentleman, appears to be weak, somewhat confused. HEENT: Atraumatic and normocephalic. Anicteric. Pupils are equal, round, and reactive to light and accommodation. Extraocular muscles intact. NECK: JVP less than 5 cm. No carotid bruit. Carotid upstrokes 2+ bilaterally. CVS: Normal S1 and S2. Regular rate and rhythm. Tachycardic. No murmurs, gallops, or rubs. LUNGS: Clear to auscultation bilaterally. ABDOMEN: Soft, nontender, and nondistended. No hepatosplenomegaly. Positive bowel sounds. EXTREMITIES: No evidence of edema, clubbing, or cyanosis. LABORATORY AND DIAGNOSTIC DATA: Laboratory findings, sodium is 143, potassium is 4.2, chloride is 106, bicarbonate is 27, BUN of 7, creatinine 0.5, glucose is 86, and calcium is 8.1. TSH was 4.05. WBC was 1.7, hemoglobin 12.9, hematocrit 39.1, and platelet count is 180. Urine toxicology was positive for benzodiazepines. A chest x-ray showed no acute process. CT of head showed no acute intracranial bleed or mass effect, marked cerebral volume loss out of proportion for the patient's age and sinus disease. ASSESSMENT AND PLAN: The patient is a very unfortunate 47-year-old gentleman, seen in Cardiology consultation at the request of Dr. Matos. 1. Sinus tachycardia likely this is due to hypovolemia due to diuresis and possibly lack of eating. The patient requires IV fluids, banana bag, administration of magnesium, folic acid, thiamine, and multivitamins. He may benefit from propranolol. 2. Alcohol withdrawal syndrome, on Librium. 3. Alcohol abuse. 4. Leukopenia. 5. Hypothyroidism. 6. Elevation of transaminases in favor of alcoholic hepatitis. 7. Macrocytic anemia due to alcohol use. I would like to thank, Dr. Matos, for the courtesy of this consultation. Olvin Medellin M.D. DR: Shandra JOB#: [id number] CC:
[2017-10-16 04:00] VITALS: BP 114/81
[2017-10-16 07:44] LABS: BASOPHILS % (AUTO) 0.7 % (0.0-2.0); EOSINOPHILS % (AUTO) 3.9 % (0.0-3.0); HEMATOCRIT 32.9 % (42.0-52.0); LYMPHOCYTES % (AUTO) 24.3 % (20.0-45.0); MEAN CORPUSCULAR VOLUME 103 FL (80-99); MONOCYTES % (AUTO) 10.3 % (1.0-10.0); NEUTROPHILS % (AUTO) 60.8 % (45.0-75.0); PLATELET COUNT 154 K/UL (150-450); RED BLOOD COUNT 3.19 M/UL (4.70-6.10); WHITE BLOOD COUNT 4.9 K/UL (4.8-10.8)
[2017-10-16 07:49] VITALS: BP 102/66
[2017-10-16 08:24] LABS: ALANINE AMINOTRANSFERASE 23 U/L (12-78); ALBUMIN 2.8 G/DL (3.4-5.0); ALBUMIN/GLOBULIN RATIO 0.7 (1.0-2.7); ALKALINE PHOSPHATASE 70 U/L (46-116); ANION GAP 9 mmol/L (5-15); ASPARTATE AMINO TRANSFERASE 23 U/L (15-37); BILIRUBIN,TOTAL 0.5 MG/DL (0.2-1.0); BLOOD UREA NITROGEN 5 mg/dL (7-18); CALCIUM 8.6 MG/DL (8.5-10.1); CARBON DIOXIDE 26 MMOL/L (21-32); CHLORIDE 102 MMOL/L (98-107); CREATININE 0.6 MG/DL (0.55-1.30); PHOSPHORUS 4.2 MG/DL (2.5-4.9); POTASSIUM 3.7 MMOL/L (3.5-5.1); SODIUM 137 MMOL/L (136-145)
[2017-10-16] MEDS: Magnesium Oxide 400mg tab ORAL SCH (08:49)
[2017-10-16] MEDS: Thiamine HCl 100mg/ml 2 ml Inj IM SCH (08:49)
[2017-10-16 11:07] VITALS: BP 122/79
--- NOTE | 2017-10-16 14:52 | General Progress Note ---
Assessment/Plan Status: stable, progressing Assessment/Plan Alcohol dependence anxiety no meds Subjective Date patient seen: Oct 16, 2017 Neurologic/Psychiatric: Reports: anxiety, depressed, emotional problems Allergies: Coded Allergies: UNABLE TO ASSESS (Unverified , 10/12/17) PT NOT ABLE TO STATE Subjective the pt is bengali speaking. the pt is Objective Last 24 Hour Vital Signs Date Time Temp Pulse Resp B/P (MAP) Pulse Ox O2 Delivery O2 Flow Rate FiO2 10/16/17 11:07 98.5 86 18 122/79 97 Room Air 98.5 86 10/16/17 07:49 97.5 82 18 102/66 98 Room Air 97.5 10/16/17 04:00 97.2 68 18 114/81 95 97.2 10/16/17 00:00 97.6 84 18 124/79 97 97.6 10/15/17 19:50 97.9 76 18 132/94 97 97.9 10/15/17 16:17 97.7 86 18 127/81 Room Air 97.7 10/15/17 15:57 98.4 79 21 121/84 95 Room Air 98.4 Intake and Output 10/15/17 10/16/17 19:00 07:00 Intake Total 1320 ml 340 ml Output Total 800 ml 1600 ml Balance 520 ml -1260 ml Intake Oral 1320 ml 340 ml Output Urine Total 800 ml 1600 ml # Voids 6 Laboratory Tests 10/16/17 06:05: White Blood Count 4.9, Red Blood Count 3.19L, Hemoglobin 11.0L, Hematocrit 32.9L , Mean Corpuscular Volume 103H, Mean Corpuscular Hemoglobin 34.4H, Mean Corpuscular Hemoglobin Concent 33.3, Red Cell Distribution Width 14.0, Platelet Count 154, Mean Platelet Volume 7.2, Neutrophils (%) (Auto) 60.8, Lymphocytes (% ) (Auto) 24.3, Monocytes (%) (Auto) 10.3H, Eosinophils (%) (Auto) 3.9H, Basophils (%) (Auto) 0.7, Sodium Level 137, Potassium Level 3.7, Chloride Level 102, Carbon Dioxide Level 26, Anion Gap 9, Blood Urea Nitrogen 5L, Creatinine 0.6, Estimat Glomerular Filtration Rate > 60, Glucose Level 71L, Uric Acid 6.2, Calcium Level 8.6, Phosphorus Level 4.2, Magnesium Level 1.6L, Total Bilirubin 0.5, Aspartate Amino Transf (AST/SGOT) 23, Alanine Aminotransferase (ALT/SGPT) 23, Alkaline Phosphatase 70, Total Protein 6.7, Albumin 2.8L, Globulin 3.9, Albumin/Globulin Ratio 0.7L Height (Feet): 5 Height (Inches): 8.00 Weight (Pounds): 170 General Appearance: no apparent distress, alert Neurologic: alert, oriented x 3, responsive, depressed affect Dwain Wren M.D. Oct 16, 2017 14:52
--- NOTE | 2017-10-16 23:41 | General Progress Note ---
Assessment/Plan Assessment/Plan 1. Leukopenia, likely secondary to alcoholic myelosuppression with splenomegaly and cirrhosis. --> Continue to closely monitor. Currently has improved. 2. Anemia of chronic disease. Continue to closely monitor. --> Transfuse if hgb <7 --> Monitor closely and trend cbc 3. Alcohol intoxication and myelosuppression. 4. Facial abrasion, potential fall. 5. Epileptic seizure, generalized, has been seen by Neurology team. 6. 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 Monitor for withdrawal. --> Continue benzodiazepines, multivitamin, folate, and thiamine. 7. I appreciate consultation. Subjective Date patient seen: Oct 15, 2017 Constitutional: Denies: no symptoms, chills, diaphoresis, fever, malaise, weakness, other HEENT: Denies: no symptoms, eye pain, blurred vision, tearing, double vision, ear pain, ear discharge, nose pain, nose congestion, throat pain, throat swelling, mouth pain, mouth swelling, other Cardiovascular: Denies: no symptoms, chest pain, edema, irregular heart rate, lightheadedness, palpitations, syncope, other Respiratory: Denies: no symptoms, cough, orthopnea, shortness of breath, SOB with excertion, SOB at rest, sputum, stridor, wheezing, other Gastrointestinal/Abdominal: Denies: no symptoms, abdomen distended, abdominal pain, black stools, tarry stools, blood in stool, constipated, diarrhea, difficulty swallowing, nausea, poor appetite, poor fluid intake, rectal bleeding , vomiting, other Genitourinary: Denies: no symptoms, burning, discharge, frequency, flank pain, hematuria, incontinence, pain, urgency, other Neurologic/Psychiatric: Denies: no symptoms, anxiety, depressed, emotional problems, headache, numbness, paresthesia, pre-existing deficit, seizure, tingling, tremors, weakness, other Allergies: Coded Allergies: UNABLE TO ASSESS (Unverified , 10/12/17) PT NOT ABLE TO STATE Subjective H/H stable. Wbc count improved. Resting in bed Objective Last 24 Hour Vital Signs Date Time Temp Pulse Resp B/P (MAP) Pulse Ox O2 Delivery O2 Flow Rate FiO2 10/16/17 11:07 98.5 86 18 122/79 97 Room Air 98.5 86 10/16/17 07:49 97.5 82 18 102/66 98 Room Air 97.5 3/23/18 04:00 97.2 68 18 114/81 95 97.2 10/16/17 00:00 97.6 84 18 124/79 97 97.6 Intake and Output 10/15/17 10/16/17 19:00 07:00 Intake Total 1320 ml 340 ml Output Total 800 ml 1600 ml Balance 520 ml -1260 ml Intake Oral 1320 ml 340 ml Output Urine Total 800 ml 1600 ml # Voids 6 Laboratory Tests 10/16/17 06:05: White Blood Count 4.9, Red Blood Count 3.19L, Hemoglobin 11.0L, Hematocrit 32.9L , Mean Corpuscular Volume 103H, Mean Corpuscular Hemoglobin 34.4H, Mean Corpuscular Hemoglobin Concent 33.3, Red Cell Distribution Width 14.0, Platelet Count 154, Mean Platelet Volume 7.2, Neutrophils (%) (Auto) 60.8, Lymphocytes (% ) (Auto) 24.3, Monocytes (%) (Auto) 10.3H, Eosinophils (%) (Auto) 3.9H, Basophils (%) (Auto) 0.7, Sodium Level 137, Potassium Level 3.7, Chloride Level 102, Carbon Dioxide Level 26, Anion Gap 9, Blood Urea Nitrogen 5L, Creatinine 0.6, Estimat Glomerular Filtration Rate > 60, Glucose Level 71L, Uric Acid 6.2, Calcium Level 8.6, Phosphorus Level 4.2, Magnesium Level 1.6L, Total Bilirubin 0.5, Aspartate Amino Transf (AST/SGOT) 23, Alanine Aminotransferase (ALT/SGPT) 23, Alkaline Phosphatase 70, Total Protein 6.7, Albumin 2.8L, Globulin 3.9, Albumin/Globulin Ratio 0.7L Height (Feet): 5 Height (Inches): 8.00 Weight (Pounds): 170 Respiratory/Chest: decreased breath sounds Edema: trace edema Niko Benjamin MD Oct 16, 2017 23:41
--- NOTE | 2017-10-16 23:44 | General Progress Note ---
Assessment/Plan Assessment/Plan 1. Leukopenia, likely secondary to alcoholic myelosuppression with splenomegaly and cirrhosis. --> Continue to closely monitor. Currently has improved. --> Resolved at this time. 2. Anemia of chronic disease. Continue to closely monitor. --> Transfuse if hgb <7 --> Monitor closely and trend cbc --> Has been stable 3. Alcohol intoxication and myelosuppression. 4. Facial abrasion, potential fall. 5. Epileptic seizure, generalized, has been seen by Neurology team. 6. 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 Monitor for withdrawal. --> Continue benzodiazepines, multivitamin, folate, and thiamine. 7. I appreciate consultation. Subjective Date patient seen: Oct 16, 2017 Constitutional: Denies: no symptoms, chills, diaphoresis, fever, malaise, weakness, other HEENT: Denies: no symptoms, eye pain, blurred vision, tearing, double vision, ear pain, ear discharge, nose pain, nose congestion, throat pain, throat swelling, mouth pain, mouth swelling, other Cardiovascular: Denies: no symptoms, chest pain, edema, irregular heart rate, lightheadedness, palpitations, syncope, other Respiratory: Denies: no symptoms, cough, orthopnea, shortness of breath, SOB with excertion, SOB at rest, sputum, stridor, wheezing, other Gastrointestinal/Abdominal: Denies: no symptoms, abdomen distended, abdominal pain, black stools, tarry stools, blood in stool, constipated, diarrhea, difficulty swallowing, nausea, poor appetite, poor fluid intake, rectal bleeding , vomiting, other Genitourinary: Denies: no symptoms, burning, discharge, frequency, flank pain, hematuria, incontinence, pain, urgency, other Neurologic/Psychiatric: Denies: no symptoms, anxiety, depressed, emotional problems, headache, numbness, paresthesia, pre-existing deficit, seizure, tingling, tremors, weakness, other Allergies: Coded Allergies: UNABLE TO ASSESS (Unverified , 10/12/17) PT NOT ABLE TO STATE Subjective Leukopenia resolved. On pain control. No fever Objective Last 24 Hour Vital Signs Date Time Temp Pulse Resp B/P (MAP) Pulse Ox O2 Delivery O2 Flow Rate FiO2 10/16/17 11:07 98.5 86 18 122/79 97 Room Air 98.5 86 10/16/17 07:49 97.5 82 18 102/66 98 Room Air 97.5 10/16/17 04:00 97.2 68 18 114/81 95 97.2 10/16/17 00:00 97.6 84 18 124/79 97 97.6 Intake and Output 10/15/17 10/16/17 19:00 07:00 Intake Total 1320 ml 340 ml Output Total 800 ml 1600 ml Balance 520 ml -1260 ml Intake Oral 1320 ml 340 ml Output Urine Total 800 ml 1600 ml # Voids 6 Laboratory Tests 10/16/17 06:05: White Blood Count 4.9, Red Blood Count 3.19L, Hemoglobin 11.0L, Hematocrit 32.9L , Mean Corpuscular Volume 103H, Mean Corpuscular Hemoglobin 34.4H, Mean Corpuscular Hemoglobin Concent 33.3, Red Cell Distribution Width 14.0, Platelet Count 154, Mean Platelet Volume 7.2, Neutrophils (%) (Auto) 60.8, Lymphocytes (% ) (Auto) 24.3, Monocytes (%) (Auto) 10.3H, Eosinophils (%) (Auto) 3.9H, Basophils (%) (Auto) 0.7, Sodium Level 137, Potassium Level 3.7, Chloride Level 102, Carbon Dioxide Level 26, Anion Gap 9, Blood Urea Nitrogen 5L, Creatinine 0.6, Estimat Glomerular Filtration Rate > 60, Glucose Level 71L, Uric Acid 6.2, Calcium Level 8.6, Phosphorus Level 4.2, Magnesium Level 1.6L, Total Bilirubin 0.5, Aspartate Amino Transf (AST/SGOT) 23, Alanine Aminotransferase (ALT/SGPT) 23, Alkaline Phosphatase 70, Total Protein 6.7, Albumin 2.8L, Globulin 3.9, Albumin/Globulin Ratio 0.7L Height (Feet): 5 Height (Inches): 8.00 Weight (Pounds): 170 General Appearance: no apparent distress Respiratory/Chest: decreased breath sounds Abdomen: soft Niko Benjamin MD Oct 16, 2017 23:44
--- NOTE | 2017-10-19 12:51 | Discharge Summary ---
Discharge Summary Hospital Course Date of Admission Oct 13, 2017 at 09:11 Date of Discharge Oct 16, 2017 at 17:12 Admitting Diagnosis alcohol withdrawal HPI Roel Barnard is a 47 year old male who was admitted on Oct 13, 2017 at 09:11 for Alcohol Withdrawal Hospital Course dc summary #[id number] Discharge Condition Upon Discharge: stable Discharge Disposition Patient was discharged to Discharge to prior living arrangement. Girish (Camerondmitry)Tracy NP Oct 19, 2017 12:51
--- NOTE | 2017-10-20 02:30 | Discharge Summary 2 SIG ---
DATE OF ADMISSION: 10/13/2017 DATE OF DISCHARGE: 10/16/2017 REASON FOR ADMISSION: The patient is a 47-year-old male, who was brought to the emergency room with altered mental status. History was significantly limited secondary to the patient's altered level of consciousness. Apparently, the patient has a questionable seizure disorder. The patient presented initially with acute alcohol intoxication. Serum alcohol level was 355 and then was in the withdrawal. The patient became agitated. A 1 mg Ativan was given. The patient was tachycardic and tremulous. WBC was 1.7. AST 67. The patient was admitted with diagnoses of acute severe alcohol intoxication, alcohol withdrawal, probable chronic alcohol abuse, and leukopenia. HOSPITAL COURSE: The patient was admitted. CT of the head revealed no evidence of acute intracranial pathology, but showed marked cerebral volume loss out of proportion to the patient's age likely pointing out to chronic alcohol abuse. Neurologist closely followed. The patient initially was on the tele floor with IV fluids with banana bag and replacement of electrolytes and close monitoring. Librium was on standby and p.r.n. and Ativan was ordered p.r.n. for seizure activity. Per GI, the patient likely has alcoholic hepatitis and LFTs were closely followed up. AST down to 60 from initial 67. ALT within normal limits with ratio about two. Electrolytes were closely monitored and replaced. Thiamine was added to existing regimen. Psychiatrist seen and evaluated the patient and diagnosed the patient with anxiety and alcohol dependency. The patient was monitored for seizure activity. No further seizure activity while in the hospital. B12 level was stable. The patient initially demonstrated sinus tachycardia. Single Pointed Operator closely followed. Sinus tachycardia was likely due to hypovolemia due to the diuresis from alcohol abuse as well as possibly lack of eating and he also stated that the patient may benefit from propranolol. Digital Business Analyst closely followed. The patient had acute myelosuppression secondary to alcohol intoxication. WBC from 1.7 up to 4.9. The patient has evidence of mild anemia likely anemia of chronic disease. B12 level was within normal limits. Thiamine added to existing regimen. Sinus tachycardia resolved. The patient was counseled on abstinence from the alcohol. The patient with a facial abrasion. Local care provided. ID seen the patient. No evidence of infection. Keep the patient off antibiotics. The patient also undergone hip x-ray, right and left, which revealed no evidence of acute fracture or dislocation. Venous duplex of bilateral lower extremity revealed no evidence of acute DVT. The patient within this couple of days became sober. The patient was stable for discharge home. FINAL DIAGNOSES: 1. Acute severe alcohol intoxication, alcohol withdrawal, probable chronic alcohol abuse with dependency. 2. Leukopenia likely secondary to acute alcohol intoxication, resolved. 3. Myelosuppression secondary to alcohol intoxication. 4. Anemia of chronic disease. 5. Sinus tachycardia, resolved. 6. Alcoholic hepatitis. 7. Macrocytic anemia. 8. Anxiety. 9. Facial abrasion. DISCHARGE MEDICATIONS: None. DISCHARGE INSTRUCTIONS: The patient was discharged home. The patient was counseled on abstinence from alcohol abuse. Britney Matos M.D. I have been assigned to dictate discharge summary on this account and I was not involved in the patient's management. Tracy Enamoradobeth david hospitalRomel NKevinPKevin DR: KATHY JOB#: [id number] CC:
== END 2017-10-16 17:12 | disposition home or self-care (01) | DRG 897 ==
LOC: EDBD 12:25 → EMR 13:00 → 4E 10-13 09:11 → EDBEDREQSVC 10-13 13:43 → EDBEDREQTM 10-13 13:43 → EDBEDREQ 10-13 13:56 → 4E 10-15 10:54
DX: F10.239 Alcohol dependence with withdrawal, unspecified (principal); K70.10 Alcoholic hepatitis without ascites; G40.309 Generalized idiopathic epilepsy and epileptic syndromes, not intractable, without status epilepticus; D63.8 Anemia in other chronic diseases classified elsewhere; D75.89 Other specified diseases of blood and blood-forming organs; F10.229 Alcohol dependence with intoxication, unspecified; R00.0 Tachycardia, unspecified; D53.9 Nutritional anemia, unspecified; F41.9 Anxiety disorder, unspecified; F17.200 Nicotine dependence, unspecified, uncomplicated; S00.81XA Abrasion of other part of head, initial encounter; X58.XXXA Exposure to other specified factors, initial encounter; Z59.0 Homelessness
CPT/HCPCS: 36415; 36600; 70450; 71045; 73502; 80053; 80061; 80307; 80329; 81001; 82306; 82550; 82607; 82746; 82803; 82962; 82977; 83036; 83690; 83735; 83880; 84100; 84443; 84550; 85007; 85025; 86140; 87081; 93970; 99285

== ENCOUNTER 2018-02-28 16:45 | Emergency (ER) | payer SELFPAY ==
[~2018-02-28] VITALS: Ht 167.6 cm; Wt 72.6 kg
[2018-02-28 16:58] VITALS: BP 120/80
--- NOTE | 2018-02-28 17:09 | Emergency Room Report ---
History of Present Illness General Chief Complaint: Alcohol Intoxication Source: EMS Present Illness HPI 47-year-old male patient presents to ER BIB ambulance for EtOH intoxication. EMS reports he is homeless and he was found on the [address]. reports his friends state that he began shaking and they thought that he may be having a seizure. states he lost bowel control in his wheelchair, states that he was ambulatory. Hx markedly limited by mental status. Patient previously seen in ER for similar symptoms. Allergies: Coded Allergies: No Known Allergies (Unverified , 03/01/18) UNABLE TO ASSESS (Unverified , 10/12/17) PT NOT ABLE TO STATE Patient History Past Medical History: see triage record Reviewed Nursing Documentation: PMH: Agreed; PSxH: Agreed Review of Systems All Other Systems: negative except mentioned in HPI Physical Exam Vital Signs Date Time Temp Pulse Resp B/P (MAP) Pulse Ox O2 Delivery O2 Flow Rate FiO2 02/28/18 16:36 98.0 62 16 120/80 98 Room Air 98.1 Sp02 EP Interpretation: reviewed, normal General Appearance: well appearing, no apparent distress, alert, GCS 15, non- toxic Head: normocephalic, atraumatic, other - negative Hill sign, negative raccoon eyes, no skull depression, no hematoma, no lacerations Eyes: bilateral eye normal inspection, bilateral eye PERRL ENT: hearing grossly normal, normal pharynx, no angioedema, normal voice, uvula midline, moist mucus membranes Neck: full range of motion Respiratory: lungs clear, normal breath sounds, no rhonchi, no respiratory distress, no accessory muscle use, no wheezing, speaking full sentences Cardiovascular #1: regular rate, rhythm, no edema Gastrointestinal: non tender, soft, no mass, non-distended, no guarding, no rebound Genitourinary: no CVA tenderness Musculoskeletal: back normal, digits/nails normal, gait/station normal, normal range of motion, non-tender Neurologic: alert, oriented x3, responsive, motor strength/tone normal, sensory intact Medical Decision Making PA Attestation Dr. Freedman is my supervising Physician whom patient management has been discussed with. Diagnostic Impression: Primary Impression: Acute alcoholic intoxication ER Course Pt. presents to the ED for alcohol intoxication Ddx considered but are not limited to drug use, alcohol use, psychosis. ordered CT head, fluids, basic labs. Vital signs: are WNL, pt. is afebrile ER COURSE: patient resting comfortably in bed, in no acute distress, nontoxic appearing. Physical exam benign, lungs clear to auscultation, no trauma or lacerations, no abdominal TTP. Patient not tremulous, no tachycardic, resting comfortably, breathing normally. Will allow patient to sleep off EtOH intoxication. Reviewed previous patient chart. EKG reading shows no acute ST elevations, QT prolongation noted. Followup with PCP to discuss treatment. CBC and CMP unremarkable, No elevation in Troponin Serum alcohol elevated above 500 Provided with IV fluids. Patient signed out to Dr. Cody. - Please note that this Emergency Department Report was dictated using [employer] care provider technology software, occasionally this can lead to erroneous entry secondary to interpretation by the dictation equipment. EKG Diagnostic Results Rate: normal Rhythm: NSR ST Segments: no acute changes Other Impression QTc prolonged to 481 ms ASA given to the pt in ED: No PA Scribe Text Boston Logan PA-C Rhythm Strip Diag. Results EP Interpretation: yes Rate: 78 Rhythm: NSR, no PVC's, no ectopy PA Scribe Text Boston Logan PA-C CT/MRI/US Diagnostic Results CT/MRI/US Diagnostic Results : Imaging Test Ordered: CT head Impression No acute intracranial hemorrhage or cortical ischemia. No skull fracture. Chronic ischemic changes. Last Vital Signs Date Time Temp Pulse Resp B/P (MAP) Pulse Ox O2 Delivery O2 Flow Rate FiO2 02/28/18 16:58 98.1 16 120/80 98 Room Air 98.1 02/28/18 16:36 62 Patient Instructions: Alcohol Intoxication, [id number] Craig Logan Feb 28, 2018 17:09
[2018-02-28 18:35] LABS: HEMOGLOBIN 12.6 G/DL (14.2-18.0); MEAN CORPUSCULAR VOLUME 95 FL (80-99); PLATELET COUNT 136 K/UL (150-450); RED BLOOD COUNT 4.09 M/UL (4.70-6.10); RED CELL DISTRIBUTION WIDTH 17.8 % (11.6-14.8); WHITE BLOOD COUNT 3.4 K/UL (4.8-10.8)
[2018-02-28 18:50] LABS: ANION GAP 10 mmol/L (5-15); BLOOD UREA NITROGEN 4 mg/dL (7-18); CALCIUM 8.5 MG/DL (8.5-10.1); CARBON DIOXIDE 27 MMOL/L (21-32); CHLORIDE 103 MMOL/L (98-107); CREATININE 0.6 MG/DL (0.55-1.30); POTASSIUM 5.3 MMOL/L (3.5-5.1); SODIUM 140 MMOL/L (136-145)
[2018-02-28 18:55] LABS: ALANINE AMINOTRANSFERASE 72 U/L (12-78); ALBUMIN 3.3 G/DL (3.4-5.0); ALBUMIN/GLOBULIN RATIO 0.7 (1.0-2.7); ALKALINE PHOSPHATASE 82 U/L (46-116); ASPARTATE AMINO TRANSFERASE 196 U/L (15-37); BILIRUBIN,TOTAL 0.4 MG/DL (0.2-1.0)
--- NOTE | 2018-03-01 08:58 | Diagnostic Imaging Report ---
Indications: Altered level of consciousness Technique: Spiral acquisitions obtained through the brain. Angled axial and coronal 5 x 5 mm slices were reconstructed. Total dose length product 2994.28 mGycm. CTDI vol(s) 70.38,70.38 mGy. Dose reduction achieved using automated exposure control Comparison: None. Findings: Unusual streak artifact obscures a portion of the left hemisphere. There is enlargement of the ventricles and extra-axial CSF spaces, markedly out of proportion to age no acute intracranial hemorrhage or edema, mass effect, nor midline shift. Normal estes-white differentiation. Intact calvarium. Visualized orbits and sinuses are unremarkable. The mastoids are clear. Impression: Central and cortical volume loss, out of proportion for age Negative for acute intracranial bleed or mass effect This agrees with the preliminary interpretation provided overnight by [facility] teleradiology service. The CT scanner at [facility] is accredited by the [place] [employer] and the scans are performed using protocols designed to limit radiation exposure to as low as reasonably achievable to attain images of sufficient resolution adequate for diagnostic evaluation.
[2018-03-01 09:10] VITALS: BP 135/82
[2018-03-01 14:37] VITALS: BP 135/82
[2018-03-01 17:33] VITALS: BP 135/82
[2018-03-02] MEDS ORDERED: LIBRIUM25 MG ORAL (02:10)
--- NOTE | 2018-03-05 14:12 | Cardiology Report ---
APPROVED REPORT EKG Measurement Heart [id number] [id number] Normal sinus rhythm Prolonged QT Abnormal ECG
== END 2018-03-01 17:39 | disposition home or self-care (01) ==
LOC: EDBD 16:45 → MERGE 17:00 → EDBD 17:00 → EMR 17:00
DX: F10.129 Alcohol abuse with intoxication, unspecified (principal)
CPT/HCPCS: 36415; 70450; 80053; 84484; 85007; 85025; 93005; 96360; 96361; 99284; G0480; 80329

== ENCOUNTER 2018-03-01 18:45 | Emergency (ER) | payer SELFPAY ==
[~2018-03-01] VITALS: Ht 167.6 cm; Wt 79.4 kg
[2018-03-01 19:05] VITALS: BP 133/89
[2018-03-01] MEDS ORDERED: LORazepam Inj 2mg/ml 1ml IV ONE (21:15)
[2018-03-01] MEDS ORDERED: Thiamine HCl 100 MG in D5W 55 ML IVPB ONE (21:15)
[2018-03-01] MEDS ORDERED: chlordiazePOXIDE 25mg Cap ORAL ONE (21:45)
[2018-03-01 22:23] LABS: BASOPHILS % (AUTO) 1.1 % (0.0-2.0); HEMATOCRIT 39.9 % (42.0-52.0); HEMOGLOBIN 12.2 G/DL (14.2-18.0); LYMPHOCYTES % (AUTO) 6.9 % (20.0-45.0); MEAN CORPUSCULAR VOLUME 99 FL (80-99); PLATELET COUNT 142 K/UL (150-450); RED BLOOD COUNT 4.04 M/UL (4.70-6.10); RED CELL DISTRIBUTION WIDTH 18.2 % (11.6-14.8); WHITE BLOOD COUNT 9.3 K/UL (4.8-10.8)
[2018-03-01 22:24] LABS: ANION GAP 27 mmol/L (5-15); BLOOD UREA NITROGEN 3 mg/dL (7-18); CALCIUM 8.7 MG/DL (8.5-10.1); CARBON DIOXIDE 12 MMOL/L (21-32); CHLORIDE 101 MMOL/L (98-107); CREATININE 1.3 MG/DL (0.55-1.30); POTASSIUM 3.7 MMOL/L (3.5-5.1); SODIUM 140 MMOL/L (136-145)
[2018-03-01 22:29] LABS: ALANINE AMINOTRANSFERASE 80 U/L (12-78); ALBUMIN 3.4 G/DL (3.4-5.0); ALBUMIN/GLOBULIN RATIO 0.7 (1.0-2.7); ALKALINE PHOSPHATASE 113 U/L (46-116); ASPARTATE AMINO TRANSFERASE 168 U/L (15-37); BILIRUBIN,TOTAL 0.7 MG/DL (0.2-1.0)
--- NOTE | 2018-03-01 22:53 | Emergency Room Report ---
History of Present Illness General Chief Complaint: Altered Level of Consciousness Source: Medical Record (Matthew Del Toro MD) Present Illness HPI Patient is a 47-year-old male brought in by EMS after increased generalized weakness. Patient been seen previously at the emergency department. Patient prior history of alcohol abuse. He was noted to have increased generalized weakness and tachycardia. History is markedly limited by patient's poor cooperation. (Matthew Del Toro MD) Allergies: Coded Allergies: No Known Allergies (Unverified , 03/01/18) UNABLE TO ASSESS (Unverified , 10/12/17) PT NOT ABLE TO STATE Patient History Past Medical History: see triage record, seizures Reviewed Nursing Documentation: PMH: Agreed; PSxH: Agreed (Matthew Del Toro MD) Nursing Documentation-PMH Past Medical History: No History, Except For Hx Cardiac Problems: No Hx Gastrointestinal Problems: Yes Hx Neurological Problems: Yes Hx Epilepsy: Yes (Matthew Del Toro MD) Review of Systems All Other Systems: limited - by poor cooperation (Matthew Del Toro MD) Physical Exam Vital Signs Date Time Temp Pulse Resp B/P (MAP) Pulse Ox O2 Delivery O2 Flow Rate FiO2 03/01/18 18:37 99.1 140 18 138/84 98 Room Air 99.1 Sp02 EP Interpretation: reviewed, normal General Appearance: normal inspection, alert, Chronically Ill Head: atraumatic ENT: normal ENT inspection, hearing grossly normal, normal voice Neck: normal inspection, full range of motion, supple, no bony tend Respiratory: normal inspection, lungs clear, normal breath sounds, no respiratory distress, no retraction, no wheezing Cardiovascular #1: no edema, tachycardia Gastrointestinal: normal inspection, normal bowel sounds, non tender, soft, no guarding, no hernia Genitourinary: no CVA tenderness Musculoskeletal: normal inspection, back normal, normal range of motion Neurologic: alert, responsive, motor weakness Psychiatric: normal inspection, judgement/insight normal, mood/affect normal Skin: normal inspection, normal color, no rash (Matthew Del Toro MD) Medical Decision Making Diagnostic Impression: Primary Impression: Alcohol withdrawal seizure Qualified Codes: F10.230 - Alcohol dependence with withdrawal, uncomplicated ER Course Patient presented for altered mental status. Differential diagnosis included but was not limited to alcohol withdrawal, electrolyte abnormality, ischemic stroke, subarachnoid hemorrhage, hypoglycemia, spinal cord injury, neurodegenerative disorder, urinary tract infection, hypoxemia.Because of complexity of patient's case laboratory testing and imaging studies were ordered. Labs Test 03/01/18 21:51 03/02/18 01:17 White Blood Count 9.3 K/UL (4.8-10.8) Red Blood Count 4.04 M/UL (4.70-6.10) Hemoglobin 12.2 G/DL (14.2-18.0) Hematocrit 39.9 % (42.0-52.0) Mean Corpuscular Volume 99 FL (80-99) Mean Corpuscular Hemoglobin 30.2 PG (27.0-31.0) Mean Corpuscular Hemoglobin Concent 30.5 G/DL (32.0-36.0) Red Cell Distribution Width 18.2 % (11.6-14.8) Platelet Count 142 K/UL (150-450) Mean Platelet Volume 6.9 FL (6.5-10.1) Neutrophils (%) (Auto) 84.0 % (45.0-75.0) Lymphocytes (%) (Auto) 6.9 % (20.0-45.0) Monocytes (%) (Auto) 8.0 % (1.0-10.0) Eosinophils (%) (Auto) 0.0 % (0.0-3.0) Basophils (%) (Auto) 1.1 % (0.0-2.0) Total Bilirubin 0.7 MG/DL (0.2-1.0) Aspartate Amino Transf (AST/SGOT) 168 U/L (15-37) Alanine Aminotransferase (ALT/SGPT) 80 U/L (12-78) Alkaline Phosphatase 113 U/L (46-116) Total Protein 8.3 G/DL (6.4-8.2) Albumin 3.4 G/DL (3.4-5.0) Globulin 4.9 g/dL Albumin/Globulin Ratio 0.7 (1.0-2.7) Salicylates Level 1.3 ug/mL (2.8-20) Acetaminophen Level < 2 MCG/ML (10-30) Serum Alcohol < 3 mg/dL Sodium Level 134 MMOL/L (136-145) Potassium Level 3.8 MMOL/L (3.5-5.1) Chloride Level 103 MMOL/L (98-107) Carbon Dioxide Level 16 MMOL/L (21-32) Anion Gap 15 mmol/L (5-15) Blood Urea Nitrogen 2 mg/dL (7-18) Creatinine 0.9 MG/DL (0.55-1.30) Estimat Glomerular Filtration Rate > 60 mL/min (>60) Glucose Level 93 MG/DL (74-106) Calcium Level 8.3 MG/DL (8.5-10.1) (Matthew Del Toro MD) ER Course Patient signout to me. He was here yesterday with severe alcohol intoxication. He came back with altered mental status with what appear to be a postictal period. He had a seizure here. He's been seizure-free since getting Ativan and Librium. Alcohol level is normal. Metabolic acidosis improving with fluid. He felt better now. Back to baseline. We'll discharge home in the morning. Lab Results Impression labs with metabolic acidosis (SENTHIL SIMENTAL M.D.) Last Vital Signs Date Time Temp Pulse Resp B/P (MAP) Pulse Ox O2 Delivery O2 Flow Rate FiO2 03/01/18 19:05 99.1 119 18 133/89 98 Room Air 99.1 Status: improved (Matthew Del Toro MD) Status: improved (SENTHIL SIMENTAL M.D.) Disposition: HOME, SELF-CARE Condition: Stable Scripts Chlordiazepoxide (Chlordiazepoxide HCl) 25 Mg Capsule 25 MG ORAL THREE TIMES A DAY, #21 CAP 0 Refills Prov: SENTHIL SIMENTAL M.D. 03/02/18 Referrals: NOT CHOSEN V[facility]/,REFERRING (PCP) Additional Instructions: Stop drinking alcohol. Go to rehabilitation. Follow-up with your doctor in 7 days. Return if worse. Matthew Del Toro MD Mar 01, 2018 22:53 SENTHIL SIMENTAL M.D. Mar 02, 2018 02:10
[2018-03-01 23:51] VITALS: BP 131/98
[2018-03-02 01:49] LABS: ANION GAP 15 mmol/L (5-15); BLOOD UREA NITROGEN 2 mg/dL (7-18); CALCIUM 8.3 MG/DL (8.5-10.1); CARBON DIOXIDE 16 MMOL/L (21-32); CHLORIDE 103 MMOL/L (98-107); CREATININE 0.9 MG/DL (0.55-1.30); POTASSIUM 3.8 MMOL/L (3.5-5.1); SODIUM 134 MMOL/L (136-145)
[2018-03-02] MEDS ORDERED: LIBRIUM25 MG ORAL (02:10)
[2018-03-02] MEDS ORDERED: chlordiazePOXIDE 25mg Cap ORAL ONE (02:15)
[2018-03-02 04:02] VITALS: BP 135/91
[2018-03-02] MEDS ORDERED: chlordiazePOXIDE 25mg Cap ONE (05:33)
[2018-03-02 05:53] VITALS: BP 135/91
== END 2018-03-02 05:55 | disposition home or self-care (01) ==
LOC: EDBD 18:45 → EMR 19:00
DX: F10.239 Alcohol dependence with withdrawal, unspecified (principal); G40.909 Epilepsy, unspecified, not intractable, without status epilepticus; F15.121 Other stimulant abuse with intoxication delirium; F14.180 Cocaine abuse with cocaine-induced anxiety disorder
CPT/HCPCS: 36415; 80048; 80053; 85025; 99284; G0480; 80329